=== PATIENT | female | born 1940 | race Caucasian/White ===

== ENCOUNTER 2017-07-18 06:52 | Outpatient (CLI) | payer MEDICARE | END 2017-07-18 06:53 | disposition home or self-care (01) | LOC: BICCT 06:52 | PROVIDERS: ATTEND Orthopaedic Surgery Sports Medicine | DX: R91.8 Other nonspecific abnormal finding of lung field (principal) | CPT/HCPCS: 71250 ==

== ENCOUNTER 2017-08-02 21:14 | Inpatient (IN) | payer MEDICARE ==
[~2017-08-02 21:14] MED LIST: ISOVUE-370 76%-LOCM 1 ML ONE
[2017-08-02 21:50] LABS: Bilirubin Small (Negative); Blood, Urine Negative (Negative); Clarity CLOUDY (Clear); Glucose, Urine (Dipstick) Negative (Negative); Leukocyte Moderate (Negative); Nitrite Negative (Negative); Protein, Urine (Dipstick) 100 mg/dL (Neg-Trace); Specific Gravity, Urine 1.023 (1.002-1.036)
[2017-08-02 21:52] LABS: Bacteria/HPF None Seen HPF (None Seen); WBC/HPF 21-50 HPF (0-3)
[2017-08-02 21:54] LABS: Pathc Cast-AUWi Flag 5.82 (0-2.49)
[2017-08-02 22:01] LABS: Hyaline Casts/LPF 0-3 HYALINE CAST LPF (0-3 Hyaline)
[2017-08-02 22:01] LABS: Hemoglobin 11.3 g/dL (12.0-16.0); Mean Corpuscular HGB CONC 32.9 g/dL (32.0-36.0); Mean Corpuscular Hemoglobin 36.2 pg (27.0-31.0); Mean Platelet Volume 6.1 fL (7.4-10.4); Platelet Count 341 thou/uL (130-400); RBC Distribution Width 11.7 % (11.5-14.5); Red Blood Cell (RBC) Count 3.13 mill/uL (4.20-5.40); White Blood Cell (WBC) Count 14.4 thou/uL (4.8-10.8)
[2017-08-02 22:02] LABS: Transitional Epithelial 0-3 HPF (0-3)
[2017-08-02 22:12] LABS: #Basophils 0.1 thou/uL (0.0-0.2); #Eosinphils 0.1 thou/uL (0.0-0.7); #Lymphocytes 1.9 thou/uL (1.20-3.40); #Monocytes 1.4 thou/uL (0.11-0.59); #Neutrophils 10.9 thou/uL (1.40-6.50); %Basophils 0.3 % (0.0-1.0); %Eosinophils 0.3 % (0.0-10.0); %Lymphocytes 13.2 % (21.0-51.0); %Monocytes 9.9 % (0.0-10.0); %Neutrophils 76.2 % (42.0-75.0); MDiff Complete? YES; Macrocytosis SLIGHT = 6-15 cells (100X) (0-5/hpf)
[2017-08-02 22:16] LABS: INR-International Normal Ratio 1.1; PTT 23.2 SEC (22.9-36.1); Prothrombin Time 14.6 SEC (12.0-14.7)
[2017-08-02 22:18] LABS: ALT (SGPT) 17 U/L (8-55); AST (SGOT) 23 U/L (5-34); Albumin 3.4 g/dL (3.4-4.8); Alkaline Phosphatase 69 U/L (40-150); Anion Gap 15 mmol/L (10-20); BUN (Urea Nitrogen) 34 mg/dL (9.8-20.1); Bilirubin, Total 0.5 mg/dL (0.2-1.2); Calc. Creatinine Clearance 0 mL/min (70-130); Calcium 9.6 mg/dL (7.8-10.44); Carbon Dioxide 21 mmol/L (23-31); Chloride 104 mmol/L (98-107); Estimated GFR-MDRD 48; Globulin 4.9 g/dL (2.4-3.5); Glucose 93 mg/dL (83-110); Lipase 15 U/L (8-78); Potassium 4.2 mmol/L (3.5-5.1); Protein, Total 8.3 g/dL (6.0-8.3); Sodium 136 mmol/L (136-145)
[2017-08-02] MEDS ORDERED: Pantoprazole 40 MG VIAL ONE (22:22)
[2017-08-02] MEDS ORDERED: Ondansetron HCl/PF 4 MG/2 ML Vial ONE (22:49)
--- NOTE | 2017-08-02 23:25 | CT ---
EXAM: ABDOMEN CT WITH CONTRAST PELVIC CT WITH CONTRAST 08/02/17 HISTORY: Nausea, vomiting, diarrhea. Decreased appetite. Rectal bleeding for four days. Abdominal pain. Dark s tools. COMPARISON: None. CORRELATION: Abdomen and pelvic CT with and without contrast 01/23/07. TECHNIQUE: An abdomen and pelvic CT are performed with IV contrast. Enteric contrast was not administered. Coron al reformatted images are submitted for interpretation. FINDINGS: ABDOMEN CT: There are areas of scarring atelectasis in the lung bases. Heart size is normal. No pericardial effus ion. The descending thoracic aorta and abdominal aorta have a normal caliber. No periaortic fat stran ding. Symmetric attenuation of the psoas muscles. Intra and extrahepatic portal vein is patent. Gallbladder is unremarkable. Note is made of a small hiatal hernia. The liver, spleen, pancreas, and adrenal glands have appropriate enhancement. Symmetric enhancement of the kidneys. There is scarring in the upper pole of the right kidney. Bilate rally, no obstructive uropathy. No gastrohepatic, retrocrural or periportal lymphadenopathy. No mesenteric mass, lymphadenopathy, or free air. Trace amount of fluid in the right pericolic gutter . Limited evaluation of the alimentary canal by the lack of oral contrast. Gastric mucosa, duodenum and the majority of the small bowel loops appear to be unremarkable. Ileocecal junction is normal. As st ated above, there is no evidence of small bowel obstruction. However, some of the small bowel loops i n the left hemiabdomen are slightly nonspecific and may have minimal mucosal prominence. Appendix is not appreciated. No inflammation at the cecal apex. The cecum, ascending colon, and proximal to mid t ransverse colon are unremarkable. There is a change in the overall mucosa starting in the mid transve rse colon involving the splenic flexure as well as the descending colon. The sigmoid colon has a norm al appearance. There are diverticula in the sigmoid colon, without evidence of diverticulitis. There is mild hyperemia and inflammatory change adjacent to the areas of abnormal mucosal prominence involv ing the colon as described above. No associated high grade colonic obstruction. PELVIC CT: There is free fluid in the pelvis. The uterus and adnexal structures are unremarkable. Urinary bladde r is unremarkable. No pelvic mass, lymphadenopathy or free air. Bilateral inguinal hernias containing mesenteric fat are identified. There is leftward curvature of the lumbar spine. IMPRESSION: 1. Abnormal mucosal appearance involving the mid transverse colon and descending colon. Distribu tion favors an infectious colitis. Inflammatory disease or a vascular/ischemic colitis are less favor ed. Correlate clinically. Colonoscopy can be performed as clinically warranted. 2. No evidence of bowel obstruction. There are some slightly irregular loops of small bowel in t he left hemiabdomen. Significance is uncertain. Better interrogation with oral contrast if warranted. 3. Free fluid in the pelvis. 4. Sigmoid colon diverticulosis without evidence of diverticulitis. POS: ELIZABETH
[2017-08-02] MEDS ORDERED: Meropenem 2 GM, Admixture Fee 1 EACH in Sodium Chloride 0.9% 100 ML IVPB SCH (23:45)
[2017-08-03] MEDS ORDERED: Acetaminophen 325 MG TAB PO PRN (01:14)
[2017-08-03] MEDS ORDERED: HYDROcodone/Acetaminophen 5/325 mg Tablet PO PRN (01:14)
[2017-08-03] MEDS ORDERED: Sodium Chloride 0.9% 1,000 ML IV SCH (01:15)
[2017-08-03 01:34] VITALS: BMI 25.7
[2017-08-03] MEDS: Sodium Chloride 0.9% 1,000 ML IV SCH ×3 (01:41→21:22)
--- NOTE | 2017-08-03 02:59 | HP ---
DATE OF ADMISSION: 08/02/2017 TIME OF SERVICE: 2345 hours. CHIEF COMPLAINT: Rectal bleeding. HISTORY OF PRESENT ILLNESS: Ms. Wayne is a 76-year-old female with history of mitral valve "leak" f ollowed by Dr. Perez, obstructive sleep apnea, hypothyroidism, GERD, who presents to the emergency dep artment for a several day history of abdominal pain, nausea, vomiting, and rectal bleeding. She describes rectal blood is initially bright red blood per rectum that seemed darkened over the t day or two. She saw PCP today and started her on Cipro. She was diagnosed with acute gastroenteri tis. She had nausea and vomiting the first 24 to 48 hours, but had resolved; but when she started vomiting again, she decided to come to the emergency department for evaluation. She did complain of sweats a nd chills during the first day that resolved. She denies any hematuria, no dysuria, no chest pain or shortness of breath. PAST MEDICAL HISTORY: 1. Mitral valve regurgitation, followed by Dr. Perez. 2. Obstructive sleep apnea, on CPAP at 10.5 cm. 3. Hypothyroidism. 4. GERD. 5. Breast cancer. 6. Osteoarthritis. 7. 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 PAST SURGICAL HISTORY: Includes; 1. Right salpingectomy. 2. Right oophorectomy. 3. Right total knee arthroplasty in 2008. 4. Bladder mesh repair in 2009. 5. Right breast lumpectomy and lymph nodectomy in 01/2016. 6. Appendectomy. 7. Hysterectomy. HOME MEDICATIONS: 1. Levothyroxine 100 mcg p.o. q.a.m. 2. Lisinopril 5 mg daily. 3. Toprol-XL 25 mg p.o. q.a.m. 4. Anastrozole 1 mg p.o. q.p.m. 5. Aspirin 81 mg daily. 6. Loratadine 10 mg daily. 7. Vitamin D3 of 2000 units q.a.m. 8. Tylenol as needed. She typically takes 1300 mg twice a day. ALLERGIES: NKDA. FAMILY HISTORY: Negative for clotting or bleeding disorder, no immune dysfunction. SOCIAL HISTORY: She used weekly social alcohol. No IV drugs or tobacco. [place] She had eaten recently at a restaurant last Monday, getting infection, but the food she ate other naty n cooked food she felt tasted normal. has eaten the exact same thing and has not had any ill nesses. REVIEW OF SYSTEMS: She has some pelvic pain with vaginal bleeding, being followed by her primary doc tor, but otherwise negative for all ten-point systems that were reviewed. PHYSICAL EXAMINATION: VITAL SIGNS: Temperature 98.6, pulse 84, blood pressure 121/67, respiratory rate 18, satting 97% on room air. GENERAL: She is awake. She is alert. She is oriented x3. She is frail, older white female, appear s to be in no acute distress. HEENT: Normocephalic and atraumatic. Pupils equal, round, and react to light bilaterally. Mucous m embranes are moist. There are no visible lesions, no thrush. NECK: Supple. There is no lymphadenopathy, JVD, or thyromegaly. She has normal Carotid upstroke wi thout bruits. LUNGS: Clear. No wheezes, no rales, no rhonchi. No prolonged expiratory phase. CARDIOVASCULAR: She has a normal S1 and S2. She has a faint holosystolic murmur, best heard at the apex, probably 2/6. She has no ejection murmurs and no diastolic murmurs. ABDOMEN: Soft. It is tender in the bilateral upper quadrants and the lateral side. She has no rebo und, rigidity, or guarding. There is no involuntary guarding. EXTREMITIES: No signs of clubbing, no edema. SKIN: Warm, moist, well perfused without rash or lesions. MUSCULOSKELETAL: Normal to inspection. There are no inflamed joints. No effusion. NEUROLOGIC: Cranial nerves II through XII are grossly intact, no focal deficits, 5/5 strength, jose raul l speech pattern. LABORATORY DATA: Sodium 136, potassium 4.2, chloride 104, bicarb 21, BUN 34, creatinine 1.10, and gl ucose 93. Liver function was completely normal. Lipase 15 and INR 1.1. CBC showed white count of 1 4.4 with normal differential, hemoglobin 11.3, hematocrit 34.5 and platelet count of 341,000. Urinal ysis showed no bacteria, negative nitrite, 4-6 squamous cells, 21-50 white cells and moderate leukoes terase. RADIOGRAPHIC STUDIES: A CT scan of the abdomen and pelvis shows transfuse and descending colitis, si gmoid diverticulosis without diverticulitis. ASSESSMENT AND PLAN: 1. Colitis: Infectious versus inflammatory. Ischemic possible. I will place the patient on levofl oxacin and Flagyl tonight, she has had multiple episodes of bright red blood per rectum. We will con tinue to treat and ask GI to evaluate. We will get stool cultures. 2. Lower gastrointestinal bleed: Bright red blood per rectum initially. She has had some darker st ools now. No hematemesis. We placed her on Protonix IV q.12 hours, and get serial H and H. Again, I will follow up on GI's recommendations. 3. History of mitral valve replacement: Stable and I will be careful with fluids and so we will ove rload her. 4. History of sleep apnea. We will order CPAP at her home settings. 5. Hypothyroidism, on levothyroxine, which will continue. 6. Gastroesophageal reflux disease as above. 7. History of breast cancer in remission after surgery. She is on her anastrozole, which will mikaela nue. 8. Cardiomyopathy: The patient was told by Dr. 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 I do not have a recent echo. She is not here for congestive heart failur e, so will defer.
[2017-08-03] MEDS: metroNIDAZOLE 500 MG in Premix Bag 1 BAG IVPB SCH ×4 (05:10→23:00)
[2017-08-03 06:12] LABS: #Eosinphils 0.1 thou/uL (0.0-0.7); #Lymphocytes 2.6 thou/uL (1.20-3.40); #Monocytes 1.4 thou/uL (0.11-0.59); #Neutrophils 9.2 thou/uL (1.40-6.50); %Basophils 0.3 % (0.0-1.0); %Eosinophils 0.4 % (0.0-10.0); %Lymphocytes 19.4 % (21.0-51.0); %Monocytes 10.5 % (0.0-10.0); %Neutrophils 69.4 % (42.0-75.0); Hemoglobin 11.6 g/dL (12.0-16.0); Mean Corpuscular HGB CONC 32.2 g/dL (32.0-36.0); Mean Corpuscular Hemoglobin 35.8 pg (27.0-31.0); Mean Platelet Volume 6.4 fL (7.4-10.4); Platelet Count 353 thou/uL (130-400); RBC Distribution Width 11.8 % (11.5-14.5); Red Blood Cell (RBC) Count 3.25 mill/uL (4.20-5.40); White Blood Cell (WBC) Count 13.2 thou/uL (4.8-10.8)
[2017-08-03 06:40] LABS: ALT (SGPT) 15 U/L (8-55); AST (SGOT) 20 U/L (5-34); Albumin 3.5 g/dL (3.4-4.8); Alkaline Phosphatase 71 U/L (40-150); Anion Gap 15 mmol/L (10-20); BUN (Urea Nitrogen) 25 mg/dL (9.8-20.1); Bilirubin, Total 0.5 mg/dL (0.2-1.2); Calc. Creatinine Clearance 59 mL/min (70-130); Calcium 9.4 mg/dL (7.8-10.44); Carbon Dioxide 18 mmol/L (23-31); Chloride 110 mmol/L (98-107); Estimated GFR-MDRD 64; Globulin 4.9 g/dL (2.4-3.5); Glucose 73 mg/dL (83-110); Magnesium 1.9 mg/dL (1.6-2.6); Potassium 3.9 mmol/L (3.5-5.1); Protein, Total 8.4 g/dL (6.0-8.3); Sodium 139 mmol/L (136-145)
--- NOTE | 2017-08-03 08:49 | PRG ---
DATE OF SERVICE: 08/03/2017 SUBJECTIVE: The patient is seen and examined at the bedside. She is doing significantly better. Sh e did not have more nausea, vomiting, and her diarrhea stopped last night. She still has abdominal s oreness. OBJECTIVE: VITAL SIGNS: Blood pressure is 97/62, O2 saturation 94, temperature is 98.6, pulse is 73, respirator y rate is 15. HEENT: Head; atraumatic, normocephalic. Eyes; PERRLA. Conjunctivae pinkish. Oral mucosa is dry. NECK: Supple, no lymphadenopathy. LUNGS: Clear. HEART: S1, S2 normal, no S3, no S4. No murmur. ABDOMEN: Soft, tender in the right and mid portion. No guarding, no masses. EXTREMITIES: No clubbing, cyanosis or edema. NEUROLOGIC: She is alert and oriented x4. There is no sensorimotor deficit. Cranial nerves are int act. LABORATORY DATA: Showed a white count of 13.2, hemoglobin 11.6, hematocrit 36.1, platelet count is 3 53,000. Sodium of 139, potassium 3.9, chloride 110, CO2 18, BUN 25, glucose 73, creatinine 0.86. Th e rest of chemistry within normal limits except for serum protein which is 8.4. Microbiology; FOBT p ositive for blood. IMPRESSION: 1. Acute gastroenteritis, most likely of infectious etiology. The patient responded nicely to antib iotics. She is on metronidazole and levofloxacin. GI consult is ordered. The patient's jb led Dr. Douglas who is the patient's GI and he will be involved in her care. 2. Lower gastrointestinal bleed, most likely secondary to infection, although ischemia was not ruled out yet. 3. History of mitral valve replacement, stable. 4. Hypothyroidism on replacement. 5. Gastroesophageal reflux disease. 6. History of breast cancer in remission after surgery on anastrozole. 7. Cardiomyopathy. 8. History of sleep apnea on CPAP at home. PLAN: Continue her IV antibiotics which is levofloxacin and metronidazole. Will slow down her IV fl uids to 100 mL per hour. Continue IV Protonix. Will reconcile her home medications and will have G I consultation with Dr. Douglas.
[2017-08-03] MEDS ORDERED: TURMERIC PO SCH (09:00)
[2017-08-03] MEDS ORDERED: TURMERIC ROOT EXTRACT PO SCH (09:00)
[2017-08-03] MEDS: Pantoprazole 40 MG VIAL IVP SCH ×2 (09:23→21:15)
[2017-08-03] MEDS: Lisinopril 5 MG TAB PO SCH (09:24)
[2017-08-03] MEDS: Metoprolol Tartrate 25 MG TAB PO SCH (09:24)
[2017-08-03] MEDS: Acetaminophen ER (8hr) 650 MG TAB PO SCH ×2 (09:25→21:14)
--- NOTE | 2017-08-03 11:57 | CON ---
DATE OF CONSULTATION: 08/03/2017 HISTORY OF PRESENT ILLNESS: The patient is a 76-year-old female who was in her normal stat e of health until 2 days prior to admission when she developed diffuse abdominal pain and cramping fo llowed by bloody diarrhea. She did have associated nausea and vomiting, but it was not coffee ground or bloody in nature. The patient had undergone a colonoscopy by Dr. Douglas in 2009 which was negati ve. The patient reports the diarrhea has slowed and the blood has become dark. She is having less a bdominal pain and she has had no vomiting. PAST MEDICAL HISTORY: Significant for breast cancer, gastroesophageal reflux disease manifested by a chronic cough, total knee replacement, mitral valve regurgitation, sleep apnea, and cardiomyopathy. PAST SURGICAL HISTORY: Ectopic , total knee replacement, bladder lift, a failed bladder lef t, lumpectomy, appendectomy, and hysterectomy. ALLERGIES: No known allergies. MEDICATIONS: Levothyroxine 100 mcg p.o. daily, lisinopril 5 mg p.o. daily, Toprol-XL 25 mg p.o. mary y, aspirin 81 mg p.o. daily, loratadine 10 mg p.o. every day, vitamin D3 2000 units daily q.a.m., Tyl enol p.r.n. SOCIAL HISTORY: She drinks 1 drink per week. Does not smoke. FAMILY HISTORY: Negative for GI or liver disease. REVIEW OF SYSTEMS: CONSTITUTIONAL: No fever or chills, no weight loss. EYES: No blurred vision or double vision. ENT: No sore throat or earaches. CARDIOVASCULAR: No chest pain or palpitations. PULMONARY: No shortness of breath, cough or wheezing. GASTROINTESTINAL: See above. : No hematuria or dysuria. MUSCULOSKELETAL: No joint pain or muscle weakness. SKIN: No rashes. NEUROLOGIC: No numbness or seizure activity. PHYSICAL EXAMINATION: VITAL SIGNS: Temperature 98.1, pulse 75, respiration rate 14, blood pressure 103/66. HEENT: Unremarkable. NECK: Supple. CHEST: Clear. CARDIOVASCULAR: Regular rate and rhythm. ABDOMEN: Soft. Diffusely tender without rebound or guarding. Bowel sounds are present. RECTAL: Deferred. EXTREMITIES: Normal. NEUROLOGIC: Nonfocal. LABORATORY: Shows a white blood cell count of 13.2, hemoglobin 11.6, hematocrit 36.1, MCV of 111, pl atelet count 353. Chemistries: Chloride 110, CO2 18, BUN 25, glucose 73, total protein 84, globulin 49. Urinalysis shows moderate leukocyte esterase, 21-[address] shows small hiatal hernia is noted. Abnormal mucosal appearance involving the mi d transverse and descending colon. No bowel obstruction, free fluid in the pelvis, sigmoid diverticu losis without diverticulitis. ASSESSMENT: 1. Ischemic colitis - the patient's clinical presentation along with a distribution of the colitis i s consistent with ischemic colitis. 2. Gastroesophageal reflux disease. 3. History of cardiomyopathy. 4. Elevated MCV. RECOMMENDATIONS: 1. Continue antibiotics. 2. Continue supportive care. 3. Check a serum folate and vitamin B12 levels. 4. PPI. 5. Clear liquids. 6. No colonoscopy at this time, will consider as outpatient.
[2017-08-03 15:32] LABS: Hemoglobin 10.2 g/dL (12.0-16.0)
[2017-08-04] MEDS ORDERED: Ondansetron HCl/PF 4 MG/2 ML Vial IVP SCH (01:00)
[2017-08-04] MEDS: Sodium Chloride 0.9% 1,000 ML IV SCH ×3 (04:18→13:35)
[2017-08-04] MEDS: metroNIDAZOLE 500 MG in Premix Bag 1 BAG IVPB SCH ×3 (05:19→18:47)
[2017-08-04] MEDS: Levothyroxine Sodium 100 MCG TAB PO SCH (05:19)
[2017-08-04 06:37] LABS: #Eosinphils 0.1 thou/uL (0.0-0.7); #Lymphocytes 1.9 thou/uL (1.20-3.40); #Monocytes 0.9 thou/uL (0.11-0.59); %Basophils 0.4 % (0.0-1.0); %Eosinophils 1.3 % (0.0-10.0); %Lymphocytes 23.4 % (21.0-51.0); %Monocytes 10.9 % (0.0-10.0); Hemoglobin 8.4 g/dL (12.0-16.0); Mean Corpuscular HGB CONC 32.7 g/dL (32.0-36.0); Mean Corpuscular Hemoglobin 36.3 pg (27.0-31.0); Mean Platelet Volume 6.5 fL (7.4-10.4); Platelet Count 288 thou/uL (130-400); RBC Distribution Width 11.7 % (11.5-14.5); Red Blood Cell (RBC) Count 2.32 mill/uL (4.20-5.40); White Blood Cell (WBC) Count 7.9 thou/uL (4.8-10.8)
[2017-08-04 07:30] LABS: Folate (Folic Acid) 16.2 ng/mL (7.0-31.4)
[2017-08-04] MEDS: Multivit, Therapeutic 1 TAB PO SCH ×2 (08:02→20:15)
[2017-08-04] MEDS: Pantoprazole 40 MG VIAL IVP SCH ×2 (08:02→20:16)
[2017-08-04] MEDS ORDERED: Magnesium 2 GM/NS 0.9% 50 ML 2 GM in Premix Bag 1 BAG IVPB SCH (09:30)
--- NOTE | 2017-08-04 11:25 | PRG ---
DATE OF SERVICE: 08/04/2017 SUBJECTIVE: The patient is seen and examined at bedside that she had a very bad night. She felt slime y good yesterday but she ate and all night she had some abdominal cramps and some diarrhea. She did not see much blood in the stool and her stools not watery, but slightly better consistency now. OBJECTIVE: VITAL SIGNS: Blood pressure is 96/59, temperature is 98.2, pulse is 59, respiratory rate is 14, and O2 saturation is 99% on room air. GENERAL: She looks somewhat pale and tired. HEENT: Pupils are responding to light properly. Sclerae nonicteric. Oral mucosa is somewhat dry. NECK: Supple. LUNGS: Clear. HEART: S1 and S2 normal. No S3, no S4. No any murmur. ABDOMEN: Soft, mildly tender all over. Bowel sounds are present. No organomegaly. EXTREMITIES: No clubbing, cyanosis, or edema. NEUROLOGIC: She is alert and oriented x4. There is no any sensory or motor deficits. Cranial nerve s intact. LABORATORY DATA: Showed white count of 7.9, hemoglobin 8.4, hematocrit 25.8, MCV 111, platelet count now is in the 88. Magnesium 1.5. Vitamin B12 is 712, folate 16.20. MICROBIOLOGY: Fecal occult blood test came back positive. IMPRESSION: 1. Colitis. The patient was seen by Dr. Kraus, who feels that this is more consistent with ischemic colitis. He recommends to continue her IV antibiotics, which is metronidazole and levofloxacin. 2. Lower gastrointestinal bleed, which could be infectious or ischemic. 3. History of mitral valve replacement, stable. 4. History of some form of cardiomyopathy. 5. Hypothyroidism on replacement. 6. Gastroesophageal reflux disease. 7. History of breast cancer in remission after surgery, on anastrozole. 8. Cardiomyopathy. 9. History of sleep apnea on continuous positive airway pressure at home. PLAN: Obtain last echo results from vp account director, Dr. Perez. We will slow down her IV fluids to 75 m L per hour. We will supplement her magnesium with 2 grams IV piggyback x1. We will keep her on mar r liquids for now and use p.r.n. antiemetic.
[2017-08-04] MEDS: Lisinopril 5 MG TAB PO SCH (13:35)
[2017-08-04] MEDS: Metoprolol Tartrate 25 MG TAB PO SCH (13:35)
[2017-08-04] MEDS: Acetaminophen ER (8hr) 650 MG TAB PO SCH ×2 (13:35→20:15)
[2017-08-05] MEDS: Promethazine HCl 25 MG/ML VIAL IM/IV PRN ×3 (00:13→18:29)
[2017-08-05] MEDS: metroNIDAZOLE 500 MG in Premix Bag 1 BAG IVPB SCH ×3 (00:15→11:38)
--- NOTE | 2017-08-05 00:15 | PRG ---
DATE OF SERVICE: 08/04/2017 SUBJECTIVE: The patient is feeling much better. She is having a lot less pain than yesterday. She is having some dark stools, but they seemed to be some black specks. No bright red blood is noted. She is tolerating an oral diet. OBJECTIVE: VITAL SIGNS: Temperature of 97.9, pulse 61, respiratory rate 14, blood pressure 144/81. CHEST: Clear. CARDIOVASCULAR: Regular rate and rhythm. ABDOMEN: Soft. Slightly tender, but much less tender than yesterday. No rebound or guarding. LABORATORY DATA: Shows a hemoglobin of 8.4, hematocrit 25.5. Vitamin B12 and folate are normal. ASSESSMENT: 1. Ischemic colitis - improving. 2. History of cardiomyopathy. 3. Anemia secondary to ischemic colitis. RECOMMENDATIONS: 1. Recheck CBC. 2. Advance diet. 3. Increase activity.
[2017-08-05] MEDS: Sodium Chloride 0.9% 1,000 ML IV SCH ×3 (00:16→18:17)
[2017-08-05] MEDS: Levothyroxine Sodium 100 MCG TAB PO SCH (05:39)
[2017-08-05 06:25] LABS: #Eosinphils 0.1 thou/uL (0.0-0.7); #Lymphocytes 1.3 thou/uL (1.20-3.40); #Monocytes 0.7 thou/uL (0.11-0.59); #Neutrophils 3.2 thou/uL (1.40-6.50); %Basophils 0.7 % (0.0-1.0); %Eosinophils 1.7 % (0.0-10.0); %Lymphocytes 25.1 % (21.0-51.0); %Monocytes 12.4 % (0.0-10.0); %Neutrophils 60.2 % (42.0-75.0); Mean Corpuscular HGB CONC 32.8 g/dL (32.0-36.0); Mean Platelet Volume 6.4 fL (7.4-10.4); Platelet Count 293 thou/uL (130-400); RBC Distribution Width 11.7 % (11.5-14.5); White Blood Cell (WBC) Count 5.3 thou/uL (4.8-10.8)
[2017-08-05] MEDS: Pantoprazole 40 MG VIAL IVP SCH (08:58)
[2017-08-05] MEDS: Acetaminophen ER (8hr) 650 MG TAB PO SCH ×2 (08:59→21:21)
[2017-08-05] MEDS: Metoprolol Tartrate 25 MG TAB PO SCH (09:00)
[2017-08-05] MEDS: Lisinopril 5 MG TAB PO SCH (09:01)
[2017-08-05] MEDS: Multivit, Therapeutic 1 TAB PO SCH ×2 (09:02→21:21)
[2017-08-05] MEDS ORDERED: Lidocaine 2% Viscous Solution 10 ML, Aluminum & Magnesium Hydroxide 30 ML SSW SCH ×2 (09:30)
[2017-08-05 10:05] LABS: Troponin I Less than 0.010 ng/mL (< 0.028)
--- NOTE | 2017-08-05 13:52 | PRG ---
DATE OF SERVICE: 08/05/2017 SUBJECTIVE: The patient is seen and examined at the bedside. She had some chest pressure this morni ng when she woke up, but she also had three small episodes of vomiting. The diarrhea is getting sign ificantly better. There was no any watery diarrhea. There was no blood in the stool anymore. She d oes not have any chest pressure any more. She thinks this was related to her vomiting, but she has a history of cardiac disease in the past. OBJECTIVE: VITAL SIGNS: Blood pressure is 148/78, pulse is 76, respiratory rate is 14, O2 saturation is 95, and temperature is 98.3. HEENT: Head is atraumatic, normocephalic. Eyes: PERRLA. Sclerae nonicteric. Conjunctivae pinkish . Oral mucosa is moist. NECK: Supple, no lymphadenopathy. LUNGS: Clear. HEART: S1 and S2 normal. No S3, no S4. ABDOMEN: Soft, nontender, nondistended. Bowel sounds are present. EXTREMITIES: No clubbing, cyanosis or edema. NEUROLOGIC: She is alert and oriented x4. There is no any sensory or motor deficit present. Crania l nerves are intact. LABORATORY DATA: Showed a white count of 5.3, hemoglobin 9.0, hematocrit 27.4, MCV 110, platelet cou nt is 293, CK-MB 2.0, magnesium 1.5. MICROBIOLOGY: No new testing. IPMRESSION: 1. Colitis, most likely ischemic per GI. We will continue IV antibiotics, metronidazole, and levofl oxacin with significant improvement in her condition. She does not have more pain or bloody diarrhea . 2. Lower gastrointestinal bleed, which is secondary to #1. 3. History of mitral valve replacement, stable. 4. History of some form of cardiomyopathy. Apparently, Dr. Perez, the carrot harvester stopped by last n ight and saw her. 5. Hypothyroidism on replacement. 6. Gastroesophageal reflux disease. 7. History of breast cancer in remission after surgery. The patient will be on anastrozole after steph love is discharged from the hospital. 8. Cardiomyopathy. Apparently had last LVEF was within normal limits based on the information we re ceived from Dr. Perez' office 9. History of sleep apnea, on CPAP at home. 10. Chest pressure. Unclear whether this is coronary artery disease, angina type of pain. Since steph love has a cardiac history, we will obtain the cardiac enzymes and we will do electrocardiogram to rule out any ischemic cause of her chest pressure. I will continue her IV fluids at 75 mL per hour and steph love received 2 grams of magnesium yesterday for magnesium level of 1.5. I am going to give her GI cock tail since she has 3 small episodes of vomiting this morning and if she tolerates this and her stomac h is better. I will start her on full liquid diet and advance as tolerated if GI is okay with this.
[2017-08-05] MEDS: Pantoprazole 80 MG in Sodium Chloride 0.9% 100 ML IVP SCH (18:15)
--- NOTE | 2017-08-05 18:36 | PRG ---
DATE OF SERVICE: 08/05/2017 SUBJECTIVE: The patient is feeling worse today. She had vomiting throughout the night and she repor ts she is having reflux type symptoms and chest discomfort. She is having some diarrhea, but it is n o longer bloody. OBJECTIVE: VITAL SIGNS: Temperature 98.3, pulse 61, respiratory rate 14, blood pressure 156/79. CHEST: Clear. CARDIOVASCULAR: Regular rate and rhythm. ABDOMEN: Soft, less tender, somewhat tender in epigastric area. No rebound or guarding is noted. LABORATORY DATA: Shows white blood cell count of 5.3, hemoglobin 9, hematocrit 27.4. ASSESSMENT: 1. Ischemic colitis. 2. Nausea, vomiting and epigastric pain - I suspect this is a flare up of the patient's reflux. RECOMMENDATIONS: 1. EGD and flex sig tomorrow. 2. Change the patient to continuous infusion PPI. 3. Continue Phenergan. 4. Discontinue metronidazole as this may be contributing some to her nausea and vomiting.
[2017-08-06] MEDS: Sodium Chloride 0.9% 1,000 ML IV SCH ×2 (00:34→15:30)
[2017-08-06] MEDS: Pantoprazole 80 MG in Sodium Chloride 0.9% 100 ML IVP SCH ×2 (04:30→17:39)
[2017-08-06] MEDS: Levothyroxine Sodium 100 MCG TAB PO SCH (06:19)
[2017-08-06] MEDS: Metoprolol Tartrate 25 MG TAB PO SCH (08:37)
[2017-08-06] MEDS: Lisinopril 5 MG TAB PO SCH (08:38)
[2017-08-06] MEDS: Acetaminophen ER (8hr) 650 MG TAB PO SCH ×2 (08:41→21:35)
[2017-08-06] MEDS: Multivit, Therapeutic 1 TAB PO SCH ×2 (08:41→21:35)
[2017-08-06] MEDS ORDERED: Promethazine HCl 25 MG/ML VIAL SLOW IVP PRN (13:07)
[2017-08-06] MEDS ORDERED: Ondansetron HCl/PF 4 MG/2 ML Vial IVP PRN (13:07)
[2017-08-06] MEDS ORDERED: Promethazine HCl 25 MG/ML VIAL IM PRN (13:07)
--- NOTE | 2017-08-06 15:20 | PDOC.PN ---
- Subjective Encounter Start Date: 08/06/17 Encounter Start Time: 09:20 Pt seen for followup re: diarrhea. Reports still has non-bloody diarrhea. Nausea better. No chest pain. - Objective Resuscitation Status: Resuscitation Status FULL:Full Resuscitation MAR Reviewed: Yes Vital Signs & Weight: Vital Signs (12 hours) Temp Pulse Resp BP BP Pulse Ox 08/06/17 14:00 98.1 F 58 L 20 155/78 H 97 08/06/17 09:00 98.3 F 64 20 150/81 H 94 L 08/06/17 08:38 62 150/81 H 08/06/17 08:00 98.3 F 64 20 94 L 08/06/17 04:00 98.5 F 59 L 16 144/77 H 92 L Weight Weight 145 lb 1.027 oz I&O: 08/05/17 08/06/17 08/07/17 06:59 06:59 06:59 Intake Total 1400 120 Balance 1400 120 Result Diagrams: 08/05/17 05:39 08/03/17 05:54 Phys Exam - Physical Examination Constitutional: NAD HEENT: moist MMs Neck: supple Respiratory: clear to auscultation bilateral Cardiovascular: RRR Gastrointestinal: soft, positive bowel sounds Neurological: moves all 4 limbs Psychiatric: normal affect Dx/Plan (1) Nausea Code(s): R11.0 - NAUSEA Status: Acute (2) Diarrhea Code(s): R19.7 - DIARRHEA, UNSPECIFIED Status: Acute (3) Cardiomyopathy Code(s): I42.9 - CARDIOMYOPATHY, UNSPECIFIED Status: Chronic (4) GERD (gastroesophageal reflux disease) Code(s): K21.9 - GASTRO-ESOPHAGEAL REFLUX DISEASE WITHOUT ESOPHAGITIS Status: Chronic (5) Hypothyroidism Code(s): E03.9 - HYPOTHYROIDISM, UNSPECIFIED Status: Chronic - Plan PT/OT, out of bed/ambulate, DVT proph w/SCDs * . Pt going for EGD + Flex-sig later today. Feels better. Follow up on scope reports. Check AM labs. Review of Systems - Review of Systems Cardiovascular: negative: chest pain, palpitations, orthopnea, paroxysmal nocturnal dyspnea, edema, light headedness Gastrointestinal: Nausea, Diarrhea. negative: Vomiting, Abdominal Pain, Constipation, Melena, Hematochezia - Medications/Allergies Allergies/Adverse Reactions: Allergies Allergy/AdvReac Type Severity Reaction Status Date / Time No Known Allergies Allergy Verified 02/22/17 10:29 Medications: Current Medications Acetaminophen (Tylenol) 650 mg PO Q4H PRN PRN Reason: Headache/Fever or Pain Last Admin: 08/04/17 08:19 Dose: 650 mg Acetaminophen (Tylenol Er (8hr Arthritis Pain)) 1,300 mg PO BID [facility] Last Admin: 08/06/17 08:41 Dose: Not Given Hydrocodone Bitart/Acetaminophen (Lawrence 5/325) 1 tab PO Q4H PRN PRN Reason: Moderate Pain (4-6) Cholecalciferol (Vitamin D3) 2,000 units PO DAILY [facility] Last Admin: 08/06/17 08:41 Dose: Not Given Fentanyl (Pacu-Sublimaze) 50 mcg SLOW IVP Q10MIN PRN PRN Reason: Moderate to Severe Pain (6-10) Stop: 08/06/17 16:07 Sodium Chloride (Normal Saline 0.9%) 1,000 mls @ 75 mls/hr IV .[id number] [facility] Last Admin: 08/06/17 00:34 Dose: Not Given Pantoprazole Sodium 80 mg/ (Sodium Chloride) 100 mls @ 10 mls/hr IVP INF [facility] Last Admin: 08/06/17 04:30 Dose: 100 mls Levothyroxine Sodium (Synthroid) 100 mcg PO 0600 [facility] Last Admin: 08/06/17 06:19 Dose: 100 mcg Lisinopril (Zestril) 5 mg PO QAM [facility] Last Admin: 08/06/17 08:38 Dose: 5 mg Metoprolol Tartrate (Lopressor) 25 mg PO DAILY [facility] Last Admin: 08/06/17 08:37 Dose: 25 mg Multivitamins (Theragran) 0.5 tab PO BID [facility] Last Admin: 08/06/17 08:41 Dose: Not Given Ondansetron HCl (Pacu-Zofran) 4 mg IVP ONE PRN PRN Reason: Nausea/Vomiting Stop: 08/06/17 16:07 Promethazine HCl (Phenergan) 12.5 mg IM/IV Q6H PRN PRN Reason: Nausea/Vomiting Last Admin: 08/05/17 18:29 Dose: 12.5 mg Promethazine HCl (Pacu-Phenergan) 6.25 mg SLOW IVP ONE PRN PRN Reason: Nausea/Vomiting Stop: 08/06/17 16:07 Promethazine HCl (Pacu-Phenergan) 6.25 mg IM ONE PRN PRN Reason: Nausea/Vomiting Stop: 08/06/17 16:07 Sodium Chloride (Flush - Normal Saline) 10 ml IVF PRN PRN PRN Reason: Saline Flush
[2017-08-06] MEDS ORDERED: Propofol 200 MG/20 ML VIAL ONE (16:34)
[2017-08-06] MEDS ORDERED: Lidocaine 1% PF 5 ML VIAL ONE (16:34)
--- NOTE | 2017-08-06 18:34 | OP ---
PREOPERATIVE DIAGNOSES: 1. Nausea, vomiting. 2. Epigastric pain. 3. Globus sensation. 4. Colitis by CT scan. ESOPHAGOGASTRODUODENOSCOPY PROCEDURE IN DETAIL: After informed consent was obtained, the patient was placed in the left lateral decubitus position. Anesthesia was administered per the Anesthesia Department. Forward-viewing end oscope was inserted into the esophagus under direct visualization with ease and passed to the second portion of the duodenum with ease. Second portion of duodenum and duodenal bulb were normal. The py lorus, antrum, body, fundus, and cardia were normal. Retroflexion in the stomach was normal. The es ophagus was normal throughout. ASSESSMENT: Normal esophagogastroduodenoscopy. RECOMMENDATIONS: 1. Continue PPI. 2. Switch to oral PPI when the patient is ready to go home. 3. Proceed with flexible sigmoidoscopy. COLONOSCOPY PROCEDURE IN DETAIL: After informed consent was obtained, the patient was placed in the left lateral decubitus position. Anesthesia was administered per the Anesthesia Department. Forward-viewing col onoscope was inserted in the rectum after perianal inspection and rectal exam were normal. It was pa ssed to the splenic flexure where some circumferential nodularity and ulceration were noted. Biopsie s were taken from this area. Approximately 20 cm of colon was involved, again mainly at the splenic flexure. This did not have the typical appearance of ischemic colitis, but considering its location, most likely is ischemic colitis. The colon was fairly clean as the scope was passed to the cecum. The cecum, ileocecal valve, and appendiceal orifice were normal. The ascending, transverse, descendi ng, sigmoid, and rectum were otherwise normal except for left-sided diverticula. ASSESSMENT: 1. 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 2. Left-sided diverticulosis coli. RECOMMENDATIONS: 1. Await histopathology. 2. Advance diet. 3. Home soon.
[2017-08-07] MEDS: Sodium Chloride 0.9% 1,000 ML IV SCH (04:20)
[2017-08-07 05:31] LABS: #Eosinphils 0.1 thou/uL (0.0-0.7); #Lymphocytes 1.7 thou/uL (1.20-3.40); #Monocytes 0.9 thou/uL (0.11-0.59); #Neutrophils 3.6 thou/uL (1.40-6.50); %Basophils 0.5 % (0.0-1.0); %Eosinophils 1.9 % (0.0-10.0); %Lymphocytes 26.8 % (21.0-51.0); %Monocytes 14.4 % (0.0-10.0); %Neutrophils 56.5 % (42.0-75.0); Hemoglobin 9.1 g/dL (12.0-16.0); Mean Corpuscular HGB CONC 31.7 g/dL (32.0-36.0); Mean Corpuscular Hemoglobin 34.9 pg (27.0-31.0); Mean Platelet Volume 6.3 fL (7.4-10.4); Platelet Count 307 thou/uL (130-400); RBC Distribution Width 11.8 % (11.5-14.5); White Blood Cell (WBC) Count 6.3 thou/uL (4.8-10.8)
[2017-08-07] MEDS: Levothyroxine Sodium 100 MCG TAB PO SCH (05:31)
[2017-08-07] MEDS: Pantoprazole 80 MG in Sodium Chloride 0.9% 100 ML IVP SCH (05:32)
[2017-08-07 06:07] LABS: Anion Gap 18 mmol/L (10-20); BUN (Urea Nitrogen) 12 mg/dL (9.8-20.1); Calc. Creatinine Clearance 72 mL/min (70-130); Calcium 8.4 mg/dL (7.8-10.44); Carbon Dioxide 17 mmol/L (23-31); Chloride 108 mmol/L (98-107); Estimated GFR-MDRD 83; Magnesium 1.5 mg/dL (1.6-2.6); Potassium 3.2 mmol/L (3.5-5.1); Sodium 140 mmol/L (136-145)
[2017-08-07 06:15] LABS: Glucose 54 mg/dL (83-110)
[2017-08-07] MEDS ORDERED: Dextrose 5 %-0.45 % NaCl 1,000 ML IV SCH (07:15)
[2017-08-07 07:48] VITALS: BP 115/68; TEMP 98.3
[2017-08-07] MEDS: Metoprolol Tartrate 25 MG TAB PO SCH (08:58)
[2017-08-07] MEDS: Lisinopril 5 MG TAB PO SCH (08:58)
[2017-08-07] MEDS: Acetaminophen ER (8hr) 650 MG TAB PO SCH (08:59)
[2017-08-07] MEDS: Multivit, Therapeutic 1 TAB PO SCH (08:59)
--- NOTE | 2017-08-07 11:21 | DIS ---
DATE OF ADMISSION: 08/02/2017 DATE OF DISCHARGE: 08/07/2017 DISCHARGE DISPOSITION: Home. PRIMARY CARE PROVIDER: Ebony Damon M.D. FINAL DIAGNOSES: Ischemic colitis, rectal bleeding, hypertension, hypothyroidism, and gastroesophage al reflux disease. DISCHARGE MEDICATIONS: Aspirin 81 mg a day, levothyroxine 1000 mcg a day, vitamin D3 2000 units a da y, metoprolol 25 mg a day, lisinopril 5 mg a day, and Protonix 40 mg twice a day. ALLERGIES: No known drug allergies. CODE STATUS: FULL. PENDING AT THE TIME OF DISCHARGE: Nothing. HOSPITAL COURSE: Patient admitted with rectal bleeding, nausea, vomiting. Admitting diagnosis was i schemic colitis versus infectious. The patient was placed on antibiotics. Dr. Pollo Kraus was consul monse. On 08/06/2017, the patient underwent esophagogastroduodenoscopy which was normal. Colonoscopy revealed splenic flexure colitis. Biopsy is currently pending. The patient has had no more rectal b leeding. She is stable and feels good to go home. Dr. Kraus has said that she could go home. PENDING AT THE TIME OF DISCHARGE: Colon biopsy at the splenic flexure. Follow up with Dr. Nuñez in 7 days. The patient to call Dr. Douglas, her primary plow holder for followup. Prescription for Protonix 40 mg twice a day written.
--- NOTE | 2017-08-10 19:42 | EKG ---
Test Reason : Blood Pressure : / mmHG Vent. Rate : 056 BPM Atrial Rate : 056 BPM P-R Int : 158 ms QRS Dur : 086 ms QT Int : 458 ms P-R-T Axes : 000 -17 013 degrees QTc Int : 441 ms Sinus bradycardia Otherwise normal ECG When compared with ECG of 01-FEB-2017 07:56, No significant change was found Confirmed by KEYSHA STAUFFER (2) on 08/10/2017 7:41:51 PM Referred By: MAYDA Confirmed By:KEYSHA STAUFFER
== END 2017-08-07 12:08 | disposition home or self-care (01) | DRG 392 ==
LOC: ERS 21:14 → SJJU 08-03 00:10
PROVIDERS: ADMIT Internal Medicine Infectious Disease; ATTEND Internal Medicine Infectious Disease
PROC: 0DJ08ZZ Inspection of Upper Intestinal Tract, Via Natural or Artificial Opening Endoscopic (ICD-10-PCS; principal; 2017-08-06)
PROC: 0DBL8ZX Excision of Transverse Colon, Via Natural or Artificial Opening Endoscopic, Diagnostic (ICD-10-PCS; 2017-08-06)
DX: K52.9 Noninfective gastroenteritis and colitis, unspecified (principal); I42.9 Cardiomyopathy, unspecified; D64.9 Anemia, unspecified; K62.5 Hemorrhage of anus and rectum; I34.0 Nonrheumatic mitral (valve) insufficiency; E03.9 Hypothyroidism, unspecified; G47.33 Obstructive sleep apnea (adult) (pediatric); K21.9 Gastro-esophageal reflux disease without esophagitis; Z85.3 Personal history of malignant neoplasm of breast; M19.90 Unspecified osteoarthritis, unspecified site; Z79.82 Long term (current) use of aspirin; Z95.2 Presence of prosthetic heart valve; K57.90 Diverticulosis of intestine, part unspecified, without perforation or abscess without bleeding; Z96.659 Presence of unspecified artificial knee joint; I10 Essential (primary) hypertension
CPT/HCPCS: 36415; 36416; 74177; 80048; 80053; 81003; 81015; 82274; 82553; 82607; 82746; 83605; 83690; 83735; 84484; 85025; 85610; 85730; 86850; 86900; 86901; 88305; 93005; 93010; 96361; 96374; 96375; C9113; J1956; J2001; J2185; J2405; J2550; J2704; J3475; J7050

== ENCOUNTER 2017-09-13 08:21 | Outpatient (CLI) | payer MEDICARE | END 2017-09-13 08:22 | disposition home or self-care (01) | LOC: BICMAMMO 08:21 | PROVIDERS: ATTEND Surgery | DX: Z08 Encounter for follow-up examination after completed treatment for malignant neoplasm (principal); Z85.3 Personal history of malignant neoplasm of breast | CPT/HCPCS: 77065; G0279 ==

== ENCOUNTER 2018-03-14 08:26 | Outpatient (CLI) | payer MEDICARE | END 2018-03-14 08:27 | disposition home or self-care (01) | LOC: BICMAMMO 08:26 | PROVIDERS: ATTEND Family Medicine | DX: Z08 Encounter for follow-up examination after completed treatment for malignant neoplasm (principal); Z85.3 Personal history of malignant neoplasm of breast | CPT/HCPCS: 77066; G0279 ==

== ENCOUNTER 2018-08-31 10:40 | Outpatient (CLI) | payer MEDICARE ==
--- NOTE | 2018-08-31 14:02 | CT ---
CT ABDOMEN AND PELVIS WITH IV CONTRAST: DATE: 08/31/2018. HISTORY: Abdominal or pelvic swelling or mass. The patient states having pain and swelling in the left pelvic region which has gotten worse. History of breast cancer. COMPARISON: 08/02/2017. FINDINGS: There is stable parenchymal density within the medial and lower aspect of the right middle lobe which may represent a chronic area of atelectasis. Lung bases otherwise appear clear. The liver, spleen, pancreas, bilateral adrenal glands, kidneys, incompletely distended urinary bladde r as well as opacified small bowel demonstrate a normal CT appearance. There is a left inguinal hernia which contains loops of small bowel without evidence of a bowel obstr uction. A fat-containing right inguinal canal is also present. There is colonic diverticulosis. The appendix is not visualized, but there are no secondary signs to suggest appendicitis. Vascular calcifications are seen in a tortuous abdominal aorta and involving the iliac arteries. There is severe left convex rotoscoliosis of the thoracolumbar spine with degenerative changes in the spine. No free fluid, fluid collection, or lymphadenopathy is seen in the abdomen or pelvis. There is a hypodense collection seen centrally in the lower perineal region in the midline in the exp ected location of the urethra measuring 2.3 cm x 1.5 cm. This was not present on the prior study. T his may represent a urethral diverticulum. There is no free fluid, fluid collection, or lymphadenopathy seen in the abdomen or pelvis. IMPRESSION: 1. Left inguinal hernia containing loops of small bowel, but there is no evidence of a bowel obstruc tion. 2. Hypodense collection within the midline in the lower perineal region inferior to the level of the pubic symphysis which is in the expected location of the urethra and could potentially represent a u rethral diverticulum. This was not present on prior exam. MRI pelvis may be helpful for further del ineation. 3. Colonic diverticulosis. 4. Severe convex rotoscoliosis of the thoracolumbar spine. POS: [facility]
[2018-08-31] MEDS ORDERED: ISOVUE-370 76%-LOCM 1 ML ONE (14:49)
== END 2018-08-31 10:41 | disposition home or self-care (01) ==
LOC: BICCT 10:40
PROVIDERS: ATTEND Family Medicine
DX: R19.04 Left lower quadrant abdominal swelling, mass and lump (principal); K40.90 Unilateral inguinal hernia, without obstruction or gangrene, not specified as recurrent; K57.30 Diverticulosis of large intestine without perforation or abscess without bleeding; M41.9 Scoliosis, unspecified
CPT/HCPCS: 74177; 82565; Q9966

== ENCOUNTER 2018-09-26 11:48 | Outpatient (CLI) | payer MEDICARE ==
--- NOTE | 2018-09-26 13:46 | RAD ---
OSSEOUS SURVEY: 09/26/2018 HISTORY: Staging of multiple myeloma. TECHNIQUE: AP and lateral views of the spine, lateral view of the skull, AP views of the upper and lower extremi ties, and AP view of the pelvis are obtained. FINDINGS: Multilevel degenerative changes are seen throughout the cervical, thoracic, and lumbar spine. There is severe left convex rotoscoliosis of the thoracolumbar spine, centered at the L2-L3 level. There i s compensatory right convex curvature of the thoracic spine. There is trace anterolisthesis of C3 on C4, likely related to the facet degenerative changes at this level. Prominent degenerative changes are seen involving the left knee, with a right total knee prosthesis p resent. There is suggestion of a slight mottled appearance involving the proximal left tibia. 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 Osteopenia is present. Increased density foci overly the pelvis, likely related to residual contrast within colonic divertic niranjan. IMPRESSION: 1. Slight mottled appearance involving the proximal left tibial metadiaphysis, which could potential ly be related to the patient's history of multiple myeloma. No additional discrete lytic or scleroti c osseous lesions are seen. 2. Multilevel degenerative changes in the spine, with S-shaped scoliotic curvature of the thoracolum bar spine. 3. Trace anterolisthesis of C4 on C5. 4. Osteopenia. POS: [facility]
== END 2018-09-26 11:49 | disposition home or self-care (01) ==
LOC: BICRAD 11:48
PROVIDERS: ATTEND Internal Medicine Hematology & Oncology
DX: C90.00 Multiple myeloma not having achieved remission (principal); C50.511 Malignant neoplasm of lower-outer quadrant of right female breast; M47.819 Spondylosis without myelopathy or radiculopathy, site unspecified; M85.80 Other specified disorders of bone density and structure, unspecified site; M41.9 Scoliosis, unspecified
CPT/HCPCS: 77075

== ENCOUNTER 2018-09-28 00:40 | Outpatient (CLI) | payer MEDICARE ==
[2018-09-28 13:59] LABS: #Eosinphils 0.1 thou/uL (0.0-0.7); #Lymphocytes 2.3 thou/uL (1.20-3.40); #Monocytes 0.7 thou/uL (0.11-0.59); #Neutrophils 4.3 thou/uL (1.40-6.50); %Basophils 0.4 % (0.0-1.0); %Eosinophils 1.6 % (0.0-10.0); %Lymphocytes 31.1 % (21.0-51.0); %Monocytes 9.8 % (0.0-10.0); Hemoglobin 9.7 g/dL (12.0-16.0); Mean Corpuscular HGB CONC 31.4 g/dL (32.0-36.0); Mean Corpuscular Hemoglobin 34.6 pg (27.0-31.0); Platelet Count 367 thou/uL (130-400); RBC Distribution Width 14.1 % (11.5-14.5); White Blood Cell (WBC) Count 7.5 thou/uL (4.8-10.8)
[2018-09-28 14:25] LABS: Anion Gap 10 mmol/L (10-20); BUN (Urea Nitrogen) 25 mg/dL (9.8-20.1); Calc. Creatinine Clearance 0 mL/min (70-130); Calcium 9.5 mg/dL (7.8-10.44); Carbon Dioxide 26 mmol/L (23-31); Chloride 106 mmol/L (98-107); Estimated GFR-MDRD 64; Glucose 116 mg/dL (83-110); Potassium 4.5 mmol/L (3.5-5.1); Sodium 137 mmol/L (136-145)
--- NOTE | 2018-09-28 15:48 | RAD ---
PA AND LATERAL CHEST: Date: 09/28/18 HISTORY: Preop. FINDINGS: Heart size is within normal limits. There are atherosclerotic changes of the aorta. Lungs show some c hronic appearing change. There is marked scoliotic change of the spine. IMPRESSION: Chronic lung change and scoliosis. No active intrathoracic disease. POS: [facility]
== END 2018-09-28 00:41 | disposition home or self-care (01) ==
LOC: LABBT 00:40
PROVIDERS: ATTEND Specialist
DX: Z01.818 Encounter for other preprocedural examination (principal); K40.20 Bilateral inguinal hernia, without obstruction or gangrene, not specified as recurrent; M41.9 Scoliosis, unspecified; J98.4 Other disorders of lung
CPT/HCPCS: 71046; 80048; 85025

== ENCOUNTER 2018-10-02 06:05 | Day surgery (SDC) | payer MEDICARE ==
[2018-09-28 12:51] VITALS: BMI 24.3
[2018-10-02] MEDS ORDERED: Ketorolac Tromethamine 30 MG/ML VIAL ONE (06:22)
[2018-10-02] MEDS ORDERED: Bupivacaine/Epinephrine 0.25% 30 ML VIAL ONE (06:56)
[2018-10-02] MEDS ORDERED: Fentanyl 100 MCG/2 ML VIAL ONE (06:59)
[2018-10-02] MEDS ORDERED: Dexamethasone 20 MG/5 ML VIAL ONE (12:58)
[2018-10-02] MEDS ORDERED: Succinylcholine Chloride 20 MG/ML 10 ml SYRINGE FS ONE (12:58)
[2018-10-02] MEDS ORDERED: Rocuronium Bromide 10 MG/ML (10ML VIAL) ONE (12:58)
[2018-10-02] MEDS ORDERED: Lidocaine 1% PF 5 ML VIAL ONE (12:58)
[2018-10-02] MEDS ORDERED: PROPOFOL 200 MG/20 ML VIAL ONE (12:58)
[2018-10-02] MEDS ORDERED: Ondansetron PF 4 MG/2 ML Vial ONE (12:58)
[2018-10-02] MEDS ORDERED: Glycopyrrolate 0.2 MG/ML 5 ML SYRINGE ONE (12:58)
[2018-10-02] MEDS ORDERED: PHENYLEPHRINE-NS 100 MCG/ML 10 ML SYRINGE ONE (12:58)
--- NOTE | 2018-10-03 10:02 | OP ---
DATE OF PROCEDURE: 10/02/2018 PREOPERATIVE DIAGNOSIS: Bilateral inguinal hernia. POSTOPERATIVE DIAGNOSIS: Bilateral inguinal hernia, indirect. OPERATION PERFORMED: Robotic repair of bilateral inguinal hernias using 3DMax mesh (medium on the right and large on the left). ANESTHESIA: General endotracheal. INDICATIONS: The patient is a 78-year-old white female. She presented with obvious visible bilateral inguinal hernias. Recent CT scan showed that there were loops of bowel present within one of them. I recommended a robotic bilateral inguinal hernia repair. I was somewhat concerned if she had a midline lower abdominal incision as well as a history of prior laparoscopic gynecologic surgery. DESCRIPTION OF OPERATION: Informed consent was obtained. The patient was taken to the operating room, where general endotracheal anesthesia was obtained. The patient was in supine position. Ashraf catheter was placed, abdomen was prepped with ChloraPrep, draped in sterile fashion. Local anesthetic was infiltrated and an 11 mm supraumbilical incision was created. A Veress needle was passed through this incision into the peritoneal cavity. A pneumoperitoneum was established. She has carbon dioxide up to pressure of 15 mmHg. An 11 mm trocar port was passed through the same incision. Laparoscopic camera was passed through this port. Under direct vision, two additional 8-mm robotic ports were placed on either side of midline at the supraumbilical level. Attention was turned inferiorly. The patient had easily visible, fairly large bilateral indirect inguinal hernias. There was surprisingly scant adhesions to the anterior abdominal wall and there did not appear to be significant interruption of the preperitoneal space and I decided to proceed robotically. The robot was docked to the ports and the camera, and operation was continued from the robotic console. Attention was turned first to the right side. A transverse incision was created several centimeters above the hernia defect. The median umbilical ligament had been obliterated by prior surgery, but dissection was carried to approximately that level. Preperitoneal dissection was carried inferiorly. The pubic tubercle was identified medially. The iliopubic tract was dissected laterally to create space for the mesh. The hernia sac was easily dissected out of the hernia defect. The round ligament was divided. The iliac vessels were identified and carefully preserved. The peritoneum was widely dissected inferiorly to give adequate room for mesh. As she was a small framed woman, I decided to use a medium-sized patch on the right. This was obtained and placed in the preperitoneal space. There was more than enough room for the medium patch, and for this reason, I decided to use the large patch on the left side. The patch was secured to the pubic tubercle and to the anterior abdominal wall with single interrupted sutures of 3-0 Vicryl. The mesh was ideally positioned to cover the defect. The peritoneum was closed with a running suture of 3-0 Stratafix. Attention was then turned to the left side. A mirror-image operation was performed with identical findings. A large-sized mesh patch was obtained for the left and positioned uneventfully and secured with the same 2 Vicryl sutures. The peritoneal defect was again closed uneventfully. The fascial defect at the 11 mm port site was closed with 0 Vicryl suture using a GraNee needle. All ports and instruments were removed under direct vision. Pneumoperitoneum was carefully evacuated. 0.25% Marcaine with epinephrine was infiltrated at each port site. Skin edges were approximated with 4-0 Monocryl subcuticular suture. Dermabond was placed externally. There were no complications. The patient tolerated the procedure well and was taken to recovery room in stable condition. Job ID: [id number]
== END 2018-10-02 13:14 | disposition home or self-care (01) ==
LOC: SDC 06:05
PROVIDERS: ATTEND Specialist
PROC: 0YUA4JZ Supplement Bilateral Inguinal Region with Synthetic Substitute, Percutaneous Endoscopic Approach (ICD-10-PCS; principal; 2018-10-02)
DX: K40.20 Bilateral inguinal hernia, without obstruction or gangrene, not specified as recurrent (principal); E03.9 Hypothyroidism, unspecified; M85.80 Other specified disorders of bone density and structure, unspecified site; Z79.82 Long term (current) use of aspirin; Z79.811 Long term (current) use of aromatase inhibitors; Z79.899 Other long term (current) drug therapy; Z98.890 Other specified postprocedural states
CPT/HCPCS: C1781; J0131; J1100; J1885; J2001; J2405; J2704; J3010

== ENCOUNTER 2018-12-25 12:08 | Outpatient (CLI) | payer MEDICARE ==
[~2018-12-25 12:08] MED LIST changes: +Gadobenate Dimeglumine 529 MG/1 ML (20ML VIAL) ONE; -ISOVUE-370 76%-LOCM 1 ML ONE
--- NOTE | 2018-12-25 15:20 | MRI ---
MRI of the lumbar spine with and without contrast: 12/25/2018 COMPARISON: None HISTORY: Low back pain, history of breast cancer and multiple myeloma TECHNIQUE: Multiplanar multisequence MR imaging of the lumbar spine provided with and without contras t FINDINGS: There is severe lumbar spine levoscoliosis, limiting detailed assessment. STIR imaging demonstrates fluid within the region of the facet joint on the left at T10-11. On the basis of 5 lumbar type vertebral bodies, the conus medullaris terminates at the L1-2 level. T12-L1: There is disc space narrowing and disc desiccation with mild disc bulge causing no central ca nal stenosis. There is mild bilateral facet hypertrophy with no significant central canal or neural foraminal stenosis. L1-2: There is disc space narrowing and disc desiccation. There is mild left and moderate right facet hypertrophy with associated moderate right neural foraminal stenosis. L2-3: There is disc space narrowing and disc desiccation. No significant central canal stenosis. Mild bilateral facet hypertrophy with mild bilateral neural foraminal stenosis. L3-4: There is disc space narrowing and disc desiccation with a small disc osteophyte complex. There is mild central canal stenosis. There is bilateral facet hypertrophy with moderate right and mild left neural foraminal stenosis. L4-5: Bilateral facet hypertrophy, left greater than right. Moderate left neural foraminal stenosis. Mild central canal stenosis. No significant right neural foraminal stenosis. L5-S1: Mild anterolisthesis noted measuring 6 mm. Bilateral facet hypertrophy noted. Mild left neural foraminal stenosis. The imaged retroperitoneal structures demonstrate no acute findings. The postcontrast imaging demonstrates no abnormal enhancement involving the nerve roots of the cauda equina or the osseous structures of the lumbar spine. There is enhancement centered at the facet joint on the left at T10-11, likely on the basis of inflammatory degenerative change. There are scattered hemangiomata noted within the lumbar spine with no discrete worrisome area of abn ormal marrow signal intensity. IMPRESSION: Prominent lumbar spine scoliosis with associated degenerative change as detailed above. Transcribed Date/Time: 12/25/2018 3:52 PM
--- NOTE | 2018-12-25 17:30 | MRI ---
MRI THORACIC SPINE WITH AND WITHOUT CONTRAST: 12/25/18 HISTORY: Mid back pain. COMPARISON: None. FINDINGS: Appropriate T1 and T2 marrow signal intensity of the thoracic vertebrae. Thoracic spine vertebral bod y height is maintained. There is no fracture. Intrinsic T1 and T2 hyperintensity involving the right aspect of the T6 vertebral body, compatible with hemangioma. No significant STIR hyperintensity to lbum ggest vertebral body edema or ligamentous injury. There is no evidence of abnormal enhancement with regards to the vertebral bodies. There is no abnorm al enhancement with regards to the thoracic cord. No cord expansion or cord T2 hyperintensity. The visualized mediastinal structures, lung parenchyma and solid organs are grossly unremarkable. Conus medullaris terminates at the mid L1 level. There is leftward curvature of the lumbar spine. T1-T2: No significant central canal stenosis. Foramina are patent. T2-T3: No significant central canal stenosis. Foramina are patent. T3-T4: No significant central canal stenosis. Foramina are patent. T4-T5: No significant central canal stenosis. Foramina are patent. T5-T6: Minimal central disc bulge. No significant central canal stenosis. Foramina are patent. T6-T7: No significant central canal stenosis. Foramina are patent. T7-T8: No significant central canal stenosis. Neural foramina are patent. T8-T9: No significant central canal stenosis. Neural foramina appear to be patent. T9-T10: No significant central canal stenosis or foraminal narrowing. T10-T11: No significant posterior disc abnormality. Mild stenosis of thecal sac predominantly due to facet hypertrophy. There is a small amount of fluid in the left facet joint. There is evidence of ass ociated enhancement suggesting facet arthropathy. Right neural foramen is patent. Minimal left forami nal narrowing. T11-T12: Minimal ligamentum flavum thickening and facet hypertrophy. No significant central canal fernando nosis. T12-L1: Mild posterior element hypertrophy. No significant central canal stenosis. No significant fo raminal narrowing at T11-T12 bilaterally. IMPRESSION: 1. No pathologically enhancement of the cord. 2. No evidence of high grade central canal stenosis or definite high grade foraminal narrowing. 3. Levoscoliosis of the lumbar spine. 4. Left sided facet arthropathy at T10-T11. There is evidence of fluid and enhancement at the yaniv int space. POS: [facility]
== END 2018-12-25 12:09 | disposition home or self-care (01) ==
LOC: BICMRI 12:08
PROVIDERS: ATTEND Neurological Surgery
DX: M54.6 Pain in thoracic spine (principal); M54.5 Low back pain; M41.9 Scoliosis, unspecified; M47.814 Spondylosis without myelopathy or radiculopathy, thoracic region; M47.816 Spondylosis without myelopathy or radiculopathy, lumbar region
CPT/HCPCS: 72157; 72158; A9577

== ENCOUNTER 2019-02-07 10:50 | Outpatient (CLI) | payer MEDICARE ==
--- NOTE | 2019-02-07 13:49 | RAD ---
CERVICAL SPINE THREE VIEWS: HISTORY: Headache. Spondylosis. TECHNIQUE: Lateral views obtained with neutral, flexion, and extension. FINDINGS: Moderate degenerative changes of the mid and lower cervical spine. Loss of disk space is seen at C5- C6, C6-C7, and C7-T1. Anterior osteophytes at these levels with posterior spondylosis. There is sli ght anterolisthesis at C4-C5. This does not appear to significantly change with flexion or extension . Spondylosis at C5, C6, and C7 encroaches into the spinal canal. Facet hypertrophy is noted. IMPRESSION: Moderate degenerative changes, as described. POS: [facility]
--- NOTE | 2019-02-07 14:24 | MRI ---
MRI CERVICAL SPINE WITHOUT CONTRAST: Multiplanar, multisequential imaging cervical spine obtained. INDICATION: Cervical spondylosis. FINDINGS: There are moderate degenerative changes of the mid cervical spine. Loss of disk space with degenerat saman spurring and spondylosis is prominent at C5-6, C6-7, and C7-T1. No significant spondylosis or disk bulge seen at C2-3 or C3-4. At C4-5, mild disk bulge and spondylosis of the anterior subarachnoid space is well preserved. At C5-6, slight anterolisthesis is noted. There is posterior disk bulge and spondylosis which abuts the anterior cord. No significant foraminal stenosis apparent, although there is left facet and unci jama hypertrophy narrowing the left foramina. At C6-7, posterior disk bulge and spondylosis abuts the anterior cord. No significant foraminal sten osis apparent. At C7-T1, there is mild anterolisthesis measured at 2-3 mm. Broad-based disk bulge and spondylosis f latten the thecal sac and efface the anterior subarachnoid space. No significant cord impingement. No significant foraminal stenosis apparent. Cervical cord signal appears normally maintained. IMPRESSION: Degenerative changes with posterior spondylosis at C5-6, C6-7, and C7-T1 as described. POS: [facility]
== END 2019-02-07 10:51 | disposition home or self-care (01) ==
LOC: BICMRI 10:50
PROVIDERS: ATTEND Nurse Practitioner Family
DX: M47.812 Spondylosis without myelopathy or radiculopathy, cervical region (principal); M47.813 Spondylosis without myelopathy or radiculopathy, cervicothoracic region
CPT/HCPCS: 36415; 72050; 72141; 80053; 80061; 84439; 84443; 85025

== ENCOUNTER 2019-03-20 10:17 | Outpatient (CLI) | payer MEDICARE ==
--- NOTE | 2019-03-20 10:57 | MMO ---
Bilateral MAMMO Bilat Diag [facility]. CLINICAL HISTORY: Patient is 78 years old and is seen for diagnostic exam. The patient has no family history of breast cancer. 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 The patient has a history of right Lumpectomy in 2017 - malignant and right Ultrasound Guided Core Biopsy - malignant. VIEWS: The views performed were: bilateral craniocaudal with tomosynthesis; bilateral mediolateral oblique with tomosynthesis; and bilateral mediolateral with tomosynthesis. FILMS COMPARED: The present examination has been compared to prior imaging studies performed at [facility] on 01/19/2017, 01/20/2017, 09/13/2017 and 03/14/2018. MAMMOGRAM FINDINGS: There are scattered fibroglandular densities. Finding 1: There are benign appearing calcifications seen in both breasts. Finding 2: There is a stable post-surgical scar seen in the right breast. There are no suspicious masses, suspicious calcifications, or new areas of architectural distortion. IMPRESSION: THERE IS NO MAMMOGRAPHIC EVIDENCE OF MALIGNANCY. A ROUTINE FOLLOW-UP MAMMOGRAM IN 1 YEAR IS RECOMMENDED. THE RESULTS OF THIS EXAM WERE SENT TO THE PATIENT. ACR BI-RADS Category 2 - Benign finding MAMMOGRAPHY NOTE: 1. A negative mammogram report should not delay a biopsy if a dominant of clinically suspicious mass is present. 2. Approximately 10% to 15% of breast cancers are not detected by mammography. 3. Adenosis and dense breasts may obscure an underlying neoplasm. Reported by: LATOYA BOWMAN MD Electonically Signed: [id number]
== END 2019-03-20 10:18 | disposition home or self-care (01) ==
LOC: BICMAMMO 10:17
PROVIDERS: ATTEND Family Medicine
DX: C50.911 Malignant neoplasm of unspecified site of right female breast (principal)
CPT/HCPCS: 77066; G0279

== ENCOUNTER 2019-04-08 12:44 | Outpatient (CLI) | payer MEDICARE ==
--- NOTE | 2019-04-08 13:36 | RAD ---
FOUR VIEWS LUMBAR SPINE: HISTORY: Right SI joint pain. History of multiple myeloma. FINDINGS: Upright weightbearing views of the lumbar spine are submitted for interpretation. An AP, left oblique , right oblique and lateral views are submitted. There are 5 lumbar type vertebrae. Marked levorotatory scoliosis lumbar spine. 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 Oblique projections limit evaluation for spondylo lysis. No obvious spondylolysis. Lateral projection does suggest retrolisthesis of L2 upon L3 and possibly L3 upon L4. Suboptimal evaluation the L3-L4 and L4-L5 disc space. Additionally, suboptimal e valuation the L3 vertebral body. The possibility of an L3 vertebral body fracture cannot be entirely excluded. Correlation is made with a lumbar spine MRI 12/25/2018. Please refer to that report for further details with regards to the vertebra. IMPRESSION: 1. Extensive degenerative changes and scoliotic changes lumbar spine. Limited evaluation the mid lumb ar spine. Better interrogation with MRI or CT. 2. 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 Transcribed Date/Time: 04/08/2019 1:51 PM
== END 2019-04-08 12:45 | disposition home or self-care (01) ==
LOC: BICRAD 12:44
PROVIDERS: ATTEND Family Medicine
DX: M53.3 Sacrococcygeal disorders, not elsewhere classified (principal); M47.816 Spondylosis without myelopathy or radiculopathy, lumbar region
CPT/HCPCS: 72110

== ENCOUNTER 2020-03-25 08:16 | Outpatient (CLI) | payer MEDICARE ==
--- NOTE | 2020-03-25 08:52 | MMO ---
Bilateral MAMMO Bilat Diag [facility]. CLINICAL HISTORY: Patient is 79 years old and is seen for diagnostic exam. The patient has no family history of breast cancer. 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 The patient has a history of right Lumpectomy in 2017 - malignant and right Ultrasound Guided Core Biopsy - malignant. VIEWS: The views performed were: bilateral craniocaudal with tomosynthesis; bilateral mediolateral oblique with tomosynthesis; and bilateral mediolateral with tomosynthesis. FILMS COMPARED: The present examination has been compared to prior imaging studies performed at [facility] on 01/20/2017, 09/13/2017, 03/14/2018 and 03/20/2019. This study has been interpreted with the assistance of computer-aided detection. MAMMOGRAM FINDINGS: There are scattered fibroglandular densities. There are stable benign appearing calcifications seen in both breasts. There are no suspicious masses, suspicious calcifications, or new areas of architectural distortion. IMPRESSION: THERE IS NO MAMMOGRAPHIC EVIDENCE OF MALIGNANCY. A ROUTINE FOLLOW-UP MAMMOGRAM IN 1 YEAR IS RECOMMENDED. THE RESULTS OF THIS EXAM WERE SENT TO THE PATIENT. ACR BI-RADS Category 2 - Benign finding MAMMOGRAPHY NOTE: 1. A negative mammogram report should not delay a biopsy if a dominant of clinically suspicious mass is present. 2. Approximately 10% to 15% of breast cancers are not detected by mammography. 3. Adenosis and dense breasts may obscure an underlying neoplasm. Reported by: LATOYA BOWMAN MD Electonically Signed: [id number]
== END 2020-03-25 08:17 | disposition home or self-care (01) ==
LOC: BICMAMMO 08:16
PROVIDERS: ATTEND Family Medicine
DX: Z08 Encounter for follow-up examination after completed treatment for malignant neoplasm (principal); Z85.3 Personal history of malignant neoplasm of breast
CPT/HCPCS: 77066; G0279

== ENCOUNTER 2020-05-13 08:55 | Outpatient (CLI) | payer MEDICARE ==
--- NOTE | 2020-05-13 09:18 | RAD ---
RIGHT ANKLE 3 VIEWS: Date: 05/13/2020 HISTORY: Pain. FINDINGS: Soft tissue swelling at the ankle both medially and laterally suggests edema. No fracture. Enthesophy te from the plantar calcaneus. There are mild degenerative changes at the ankle and midfoot. IMPRESSION: No acute osseous abnormality. POS: [facility]
== END 2020-05-13 08:56 | disposition home or self-care (01) ==
LOC: BICRAD 08:55
PROVIDERS: ATTEND Internal Medicine Rheumatology
DX: M25.571 Pain in right ankle and joints of right foot (principal)

== ENCOUNTER 2021-04-14 09:38 | Outpatient (CLI) | payer MEDICARE | END 2021-04-14 09:39 | disposition home or self-care (01) | LOC: BICMAMMO 09:38 | PROVIDERS: ATTEND Family Medicine | DX: Z08 Encounter for follow-up examination after completed treatment for malignant neoplasm (principal); Z13.820 Encounter for screening for osteoporosis; M81.0 Age-related osteoporosis without current pathological fracture; Z85.3 Personal history of malignant neoplasm of breast | CPT/HCPCS: 77066; 77080; G0279 ==

== ENCOUNTER 2021-06-16 14:02 | Outpatient (CLI) | payer MEDICARE | END 2021-06-16 14:03 | disposition home or self-care (01) | LOC: ULT 14:02 | PROVIDERS: ATTEND Internal Medicine Hematology & Oncology | DX: R60.0 Localized edema (principal) | CPT/HCPCS: 83883; 84165; 93970 ==

== ENCOUNTER 2021-09-30 07:50 | Outpatient (CLI) | payer MEDICARE | END 2021-09-30 07:51 | disposition home or self-care (01) | LOC: BICULT 07:50 | PROVIDERS: ATTEND Family Medicine | DX: M79.89 Other specified soft tissue disorders (principal); M79.604 Pain in right leg; M25.871 Other specified joint disorders, right ankle and foot | CPT/HCPCS: 76999 ==

== ENCOUNTER 2023-05-05 10:26 | Outpatient (CLI) | payer MEDICARE | END 2023-05-05 10:27 | disposition home or self-care (01) | LOC: BICMAMMO 10:26 | PROVIDERS: ATTEND Family Medicine | DX: Z12.31 Encounter for screening mammogram for malignant neoplasm of breast (principal); M85.89 Other specified disorders of bone density and structure, multiple sites; M81.0 Age-related osteoporosis without current pathological fracture; Z85.3 Personal history of malignant neoplasm of breast; Z98.890 Other specified postprocedural states | CPT/HCPCS: 77063; 77067; 77080 ==

== ENCOUNTER 2023-06-26 13:06 | Outpatient (CLI) | payer MEDICARE | END 2023-06-26 13:07 | disposition home or self-care (01) | LOC: RAD 13:06 | PROVIDERS: ATTEND Family Medicine | DX: M25.431 Effusion, right wrist (principal); M19.041 Primary osteoarthritis, right hand | CPT/HCPCS: 36415; 84550; 85025; 86038; 86225 ==

== ENCOUNTER 2023-08-01 13:51 | Outpatient (CLI) | payer MEDICARE | END 2023-08-01 13:52 | disposition home or self-care (01) | LOC: BICRAD 13:51 | PROVIDERS: ATTEND Family Medicine | DX: M25.551 Pain in right hip (principal); M41.9 Scoliosis, unspecified; M47.816 Spondylosis without myelopathy or radiculopathy, lumbar region | CPT/HCPCS: 72100; 72170 ==

== ENCOUNTER 2024-02-02 06:40 | Outpatient (CLI) | payer MEDICARE | END 2024-02-02 06:41 | disposition home or self-care (01) | LOC: CT 06:40 | PROVIDERS: ATTEND Family Medicine | DX: K21.9 Gastro-esophageal reflux disease without esophagitis (principal); R13.10 Dysphagia, unspecified; R10.9 Unspecified abdominal pain; K44.9 Diaphragmatic hernia without obstruction or gangrene; K40.20 Bilateral inguinal hernia, without obstruction or gangrene, not specified as recurrent; N28.9 Disorder of kidney and ureter, unspecified; W19.XXXA Unspecified fall, initial encounter | CPT/HCPCS: 70450; 74177 ==

== ENCOUNTER 2024-05-08 08:37 | Outpatient (CLI) | payer MEDICARE | END 2024-05-08 08:38 | disposition home or self-care (01) | LOC: BICMAMMO 08:37 | PROVIDERS: ATTEND Family Medicine | DX: Z12.31 Encounter for screening mammogram for malignant neoplasm of breast (principal); Z85.3 Personal history of malignant neoplasm of breast; Z98.890 Other specified postprocedural states | CPT/HCPCS: 77063; 77067 ==

== ENCOUNTER 2024-08-14 09:32 | Outpatient (CLI) | payer MEDICARE ==
[~2024-08-14 09:32] MED LIST changes: -Gadobenate Dimeglumine 529 MG/1 ML (20ML VIAL) ONE; +Iopamidol 370 76% 100 ML VIAL ONE
== END 2024-08-14 09:33 | disposition home or self-care (01) ==
LOC: BICCT 09:32
PROVIDERS: ATTEND Urology
DX: N28.89 Other specified disorders of kidney and ureter (principal); K44.9 Diaphragmatic hernia without obstruction or gangrene; I51.7 Cardiomegaly; J98.4 Other disorders of lung
CPT/HCPCS: 74170; Q9967

== ENCOUNTER 2025-03-27 09:00 | Day surgery (SDC) | payer MEDICARE ==
[2025-03-27] MEDS ORDERED: Acetaminophen 500 MG TAB ONE (09:43)
[2025-03-27] MEDS ORDERED: diphenhydrAMINE 25 MG CAP ONE (09:43)
[2025-03-27] MEDS: diphenhydrAMINE 25 MG CAP PO SCH (09:44)
[2025-03-27] MEDS: Acetaminophen 500 MG TAB PO SCH (09:44)
[2025-03-27 15:49] VITALS: BP 95/51; TEMP 97.9
== END 2025-03-27 15:50 | disposition home or self-care (01) ==
LOC: ONC/OP 09:00
PROVIDERS: ATTEND Internal Medicine Hematology & Oncology
DX: D64.9 Anemia, unspecified (principal); D69.6 Thrombocytopenia, unspecified
CPT/HCPCS: 36430; 86850; 86900; 86901; 86920; P9016

== ENCOUNTER 2025-04-07 20:45 | Inpatient (IN) | payer MEDICARE ==
[2025-04-07 21:47] LABS: Hematocrit 30.3 % (36.0-47.0); Hemoglobin 9.3 g/dL (12.0-16.0); Mean Corpuscular Hemoglobin 29.9 pg (27.0-31.0); Mean Corpuscular Volume 97.4 fL (78.0-98.0); Platelet Count 199 10x3/uL (130-400); Red Blood Cell (RBC) Count 3.11 mill/uL (4.20-5.40); White Blood Cell (WBC) Count 5.72 10x3/uL (4.8-10.8)
[2025-04-07 22:14] LABS: ALT (SGPT) 9 U/L (Less than 34); AST (SGOT) 20 U/L (11-34); Albumin 2.8 g/dL (3.1-4.5); Alkaline Phosphatase 73 U/L (40-110); Anion Gap 11 mmol/L (10-20); BUN (Urea Nitrogen) 9 mg/dL (9.8-20.1); Bilirubin, Total 0.9 mg/dL (0.3-1.2); Calc. Creatinine Clearance 0 mL/min (70-130); Calcium 8.5 mg/dL (7.8-10.44); Carbon Dioxide 23 mmol/L (23-31); Chloride 103 mmol/L (98-107); Globulin 5.4 g/dL (2.4-3.5); Glucose 115 mg/dL (83-110); Potassium 3.0 mmol/L (3.5-5.1); Sodium 134 mmol/L (136-145)
[2025-04-07 22:26] LABS: Anisocytosis SLIGHT = 6-15 cells HPF (0-5); Macrocytosis SLIGHT = 6-15 cells HPF (0-5); Nucleated RBC (Manual Ct) 1 % (0); Other Cell Types 1.9; Ovalocytes SLIGHT = 2-5 cells HPF (0-1); Plasma Cells 1 % (0-0); Platelet Adequacy Comment Platelets Normal; Polychromasia SLIGHT = 2-3 cells HPF (0-2); Smudge Cells 11.5 %; Stomatocytes SLIGHT = 2-5 cells HPF (0-1)
[2025-04-07] MEDS ORDERED: Azithromycin 250 MG TAB ONE (23:16)
[2025-04-07] MEDS ORDERED: Cefepime 2 GM VIAL ONE (23:17)
[2025-04-07 23:50] LABS: Bacteria/HPF 2+ HPF (None Seen); CAUTI Indications for Culture Alt mental st,lethar; Glucose, Urine (Dipstick) Normal (Negative); Leukocyte 75 Leu/uL (Negative); Protein, Urine (Dipstick) 100 mg/dL (Neg-Trace); Specific Gravity, Urine 1.013 (1.002-1.036); WBC/HPF 21-50 HPF (0-3)
[2025-04-07 23:51] LABS: Urine Culture Reflex Yes Yes
[2025-04-07] MEDS ORDERED: Ondansetron PF 4 MG/2 ML Vial IVP PRN (23:55)
[2025-04-08 03:51] VITALS: BMI 23.1
[2025-04-08] MEDS: Guaifenesin DM 100-10/5 ML UDCUP PO PRN (05:36)
[2025-04-08 05:37] LABS: Anion Gap 10 mmol/L (10-20); BUN (Urea Nitrogen) 9 mg/dL (9.8-20.1); Calc. Creatinine Clearance 69 mL/min (70-130); Calcium 8.6 mg/dL (7.8-10.44); Carbon Dioxide 25 mmol/L (23-31); Chloride 101 mmol/L (98-107); Glucose 110 mg/dL (83-110); Potassium 3.8 mmol/L (3.5-5.1); Sodium 132 mmol/L (136-145)
[2025-04-08 06:03] LABS: Hematocrit 29.8 % (36.0-47.0); Hemoglobin 9.1 g/dL (12.0-16.0); Mean Corpuscular Hemoglobin 30.4 pg (27.0-31.0); Mean Corpuscular Volume 99.7 fL (78.0-98.0); Platelet Count 187 10x3/uL (130-400); Red Blood Cell (RBC) Count 2.99 mill/uL (4.20-5.40); White Blood Cell (WBC) Count 5.49 10x3/uL (4.8-10.8)
[2025-04-08 06:48] LABS: Macrocytosis SLIGHT = 6-15 cells HPF (0-5); Nucleated RBC (Manual Ct) 1 % (0); Plasma Cells 1 % (0-0); Platelet Adequacy Comment Platelets Normal; Polychromasia SLIGHT = 2-3 cells HPF (0-2); Smudge Cells 3.9 %; Stomatocytes SLIGHT = 2-5 cells HPF (0-1)
[2025-04-08] MEDS: Enoxaparin 40 MG (0.4 mL) SYRINGE SC SCH (08:32)
[2025-04-08] MEDS: valACYclovir 500 MG TAB PO SCH (08:33)
[2025-04-08] MEDS ORDERED: Albuterol 200 PUFF INH INH PRN (09:26)
[2025-04-08] MEDS: cefTRIAXone\\ROCEPHIN 1 GM in Sodium Chloride 0.9% 100 ML IVPB SCH (09:40)
[2025-04-08] MEDS: Azithromycin 500 MG in Sodium Chloride 0.9% 250 ML 250 ML IVPB SCH (10:31)
[2025-04-08] MEDS: Acetaminophen 325 MG TAB PO PRN (11:05)
[2025-04-09 05:19] LABS: Hematocrit 28.3 % (36.0-47.0); Hemoglobin 8.8 g/dL (12.0-16.0); Mean Corpuscular Hemoglobin 30.6 pg (27.0-31.0); Mean Corpuscular Volume 98.3 fL (78.0-98.0); Platelet Count 166 10x3/uL (130-400); Red Blood Cell (RBC) Count 2.88 mill/uL (4.20-5.40); White Blood Cell (WBC) Count 3.89 10x3/uL (4.8-10.8)
[2025-04-09 05:42] LABS: Anion Gap 7 mmol/L (10-20); BUN (Urea Nitrogen) 10 mg/dL (9.8-20.1); Calc. Creatinine Clearance 64 mL/min (70-130); Calcium 8.8 mg/dL (7.8-10.44); Carbon Dioxide 27 mmol/L (23-31); Chloride 105 mmol/L (98-107); Glucose 129 mg/dL (83-110); Magnesium 1.7 mg/dL (1.6-2.6); Potassium 3.6 mmol/L (3.5-5.1); Sodium 135 mmol/L (136-145)
[2025-04-09 06:26] LABS: Anisocytosis MODERATE=16-30 cells HPF (0-5); Macrocytosis SLIGHT = 6-15 cells HPF (0-5); Nucleated RBC (Manual Ct) 6 % (0); Platelet Adequacy Comment Platelets Normal; Smudge Cells 32.7 %
[2025-04-09] MEDS: Sulfameth/Trimethoprim DS 800-160mg TAB PO SCH (08:31)
[2025-04-09 17:13] VITALS: BMI 23.1
[2025-04-10 06:28] LABS: Hematocrit 29.3 % (36.0-47.0); Hemoglobin 8.8 g/dL (12.0-16.0); Mean Corpuscular Hemoglobin 29.4 pg (27.0-31.0); Mean Corpuscular Volume 98.0 fL (78.0-98.0); Platelet Count 186 10x3/uL (130-400); Red Blood Cell (RBC) Count 2.99 mill/uL (4.20-5.40); White Blood Cell (WBC) Count 3.41 10x3/uL (4.8-10.8)
[2025-04-10 06:52] LABS: ALT (SGPT) 7 U/L (Less than 34); AST (SGOT) 21 U/L (11-34); Albumin 2.3 g/dL (3.1-4.5); Alkaline Phosphatase 73 U/L (40-110); Anion Gap 9 mmol/L (10-20); BUN (Urea Nitrogen) 9 mg/dL (9.8-20.1); Bilirubin, Total 0.3 mg/dL (0.3-1.2); Calc. Creatinine Clearance 60 mL/min (70-130); Calcium 8.6 mg/dL (7.8-10.44); Carbon Dioxide 27 mmol/L (23-31); Chloride 107 mmol/L (98-107); Globulin 5.2 g/dL (2.4-3.5); Glucose 84 mg/dL (83-110); Potassium 4.0 mmol/L (3.5-5.1); Sodium 139 mmol/L (136-145)
[2025-04-10 07:23] LABS: Anisocytosis SLIGHT = 6-15 cells HPF (0-5); Nucleated RBC (Manual Ct) 2 % (0); Platelet Adequacy Comment Platelets Normal; RBC Morphology Within Normal Limits; Smudge Cells 7.8 %
[2025-04-10 08:31] VITALS: BP 114/64; TEMP 98.2
[2025-04-10] MEDS ORDERED: Albuterol 200 PUFF INH INH SCH (18:30)
[2025-04-10] MEDS ORDERED: Aspirin 81 mg Enteric Coated Tablet PO SCH (21:00)
[2025-04-10] MEDS ORDERED: DULoxetine 20 MG CAP PO SCH (21:00)
[2025-04-11] MEDS ORDERED: Ferrous Sulfate 325 MG TAB PO SCH (08:00)
[2025-04-11] MEDS ORDERED: Pantoprazole 40 MG DR.TAB PO SCH (09:00)
[2025-04-11] MEDS ORDERED: Non-Formulary Item 1 EACH (Ferrous Sulfate [Iron] 142 MG Tablet.Er) PO SCH (09:00)
== END 2025-04-10 15:27 | DRG 178 ==
LOC: ERS 20:45 → T4-A 23:55
PROVIDERS: ADMIT Internal Medicine; ATTEND Internal Medicine
DX: U07.1 COVID-19 (principal); C90.00 Multiple myeloma not having achieved remission; N39.0 Urinary tract infection, site not specified; G47.33 Obstructive sleep apnea (adult) (pediatric); E03.9 Hypothyroidism, unspecified; K21.9 Gastro-esophageal reflux disease without esophagitis; E87.6 Hypokalemia; Z90.49 Acquired absence of other specified parts of digestive tract; Z98.890 Other specified postprocedural states; Z96.651 Presence of right artificial knee joint; Z87.891 Personal history of nicotine dependence; Z85.3 Personal history of malignant neoplasm of breast; Z79.82 Long term (current) use of aspirin; Z79.899 Other long term (current) drug therapy
CPT/HCPCS: 36415; 71045; 80048; 80053; 81001; 83735; 84145; 84443; 84484; 85025; 87040; 87077; 87086; 87186; 87428; 93005; 94640; 96365; J0456; J0692; J0696; J1650; J2185; J2543; J7050

== ENCOUNTER 2025-04-29 07:47 | Day surgery (SDC) | payer MEDICARE ==
[2025-04-29] MEDS ORDERED: Acetaminophen 500 MG TAB ONE (08:10)
[2025-04-29] MEDS ORDERED: diphenhydrAMINE 25 MG CAP ONE (08:10)
[2025-04-29] MEDS: diphenhydrAMINE 25 MG CAP PO SCH (08:11)
[2025-04-29] MEDS: Acetaminophen 500 MG TAB PO SCH (08:11)
[2025-04-29 14:39] VITALS: BP 137/64; TEMP 98.3
== END 2025-04-29 14:41 | disposition home or self-care (01) ==
LOC: ONC/OP 07:47
PROVIDERS: ATTEND Internal Medicine Hematology & Oncology
DX: D64.9 Anemia, unspecified (principal); D69.6 Thrombocytopenia, unspecified
CPT/HCPCS: 36430; 86850; 86900; 86901; 86920; P9016

== ENCOUNTER 2025-05-05 13:53 | Day surgery (SDC) | payer MEDICARE ==
[2025-05-05] MEDS: SODIUM CHLORIDE 0.9% IVPB SCH (14:52)
[2025-05-05] MEDS: GENTAMICIN SULFATE IVPB SCH (14:52)
[2025-05-05 15:12] VITALS: BP 130/68; TEMP 98
== END 2025-05-05 16:22 | disposition home or self-care (01) ==
LOC: ONC/OP 13:53
PROVIDERS: ATTEND Family Medicine
DX: N39.0 Urinary tract infection, site not specified (principal)
CPT/HCPCS: 96365; J1580

== ENCOUNTER 2025-06-03 17:52 | Inpatient (IN) | payer MEDICARE ==
[2025-06-03] MEDS: Dexamethasone 10 MG/ML VIAL SLOW IVP SCH (21:20)
[2025-06-03 23:01] VITALS: BMI 21.5
[2025-06-04] MEDS: QUEtiapine 25 MG TAB PO SCH ×2 (03:47→20:12)
[2025-06-04 11:56] VITALS: BMI 21.5
[2025-06-04] MEDS ORDERED: Pantoprazole 40 MG DR.TAB PO SCH (14:07)
[2025-06-04] MEDS ORDERED: valACYclovir 500 MG TAB PO SCH (14:08)
[2025-06-04] MEDS: Acetaminophen 500 MG TAB PO PRN (14:41)
[2025-06-04] MEDS: valACYclovir 500 MG TAB PO SCH (14:42)
[2025-06-04] MEDS: Pantoprazole 40 MG DR.TAB PO SCH (14:42)
[2025-06-04 15:54] LABS: Anion Gap 10 mmol/L (10-20); BUN (Urea Nitrogen) 24 mg/dL (9.8-20.1); Calc. Creatinine Clearance 39 mL/min (70-130); Calcium 9.2 mg/dL (7.8-10.44); Carbon Dioxide 24 mmol/L (23-31); Chloride 107 mmol/L (98-107); Glucose 124 mg/dL (83-110); Magnesium 1.8 mg/dL (1.6-2.6); Potassium 3.9 mmol/L (3.5-5.1); Sodium 137 mmol/L (136-145)
[2025-06-04] MEDS: DULoxetine 20 MG CAP PO SCH (20:12)
[2025-06-05 05:11] LABS: Hematocrit 20.7 % (36.0-47.0); Hemoglobin 6.3 g/dL (12.0-16.0); Mean Corpuscular Hemoglobin 31.5 pg (27.0-31.0); Mean Corpuscular Volume 103.5 fL (78.0-98.0); Platelet Count 144 10x3/uL (130-400); Red Blood Cell (RBC) Count 2.00 mill/uL (4.20-5.40); White Blood Cell (WBC) Count 5.77 10x3/uL (4.8-10.8)
[2025-06-05 05:25] LABS: Anion Gap 8 mmol/L (10-20); BUN (Urea Nitrogen) 27 mg/dL (9.8-20.1); Calc. Creatinine Clearance 53 mL/min (70-130); Calcium 9.1 mg/dL (7.8-10.44); Carbon Dioxide 27 mmol/L (23-31); Chloride 110 mmol/L (98-107); Glucose 122 mg/dL (83-110); Magnesium 2.1 mg/dL (1.6-2.6); Potassium 4.0 mmol/L (3.5-5.1); Sodium 141 mmol/L (136-145)
[2025-06-05 05:40] LABS: Anisocytosis SLIGHT = 6-15 cells HPF (0-5); Macrocytosis SLIGHT = 6-15 cells HPF (0-5); Nucleated RBC (Manual Ct) 2 % (0); Platelet Adequacy Comment Platelets Normal; Smudge Cells 7.6 %
[2025-06-05] MEDS: Pantoprazole 40 MG DR.TAB PO SCH (08:40)
[2025-06-05] MEDS: valACYclovir 500 MG TAB PO SCH (08:40)
[2025-06-05 14:50] VITALS: BP 132/71; TEMP 98
== END 2025-06-05 15:02 | disposition home or self-care (01) | DRG 847 ==
LOC: MSONC 18:11 → OBSVTOIN 06-04 13:22
PROVIDERS: ADMIT Family Medicine; ATTEND Hospitalist
PROC: XW0 New Technology, Anatomical Regions, Introduction (ICD-10-PCS; principal; 2025-06-04)
PROC: 30233N1 Transfusion of Nonautologous Red Blood Cells into Peripheral Vein, Percutaneous Approach (ICD-10-PCS; 2025-06-04)
DX: Z51.11 Encounter for antineoplastic chemotherapy (principal); C90.00 Multiple myeloma not having achieved remission; G47.33 Obstructive sleep apnea (adult) (pediatric); E03.9 Hypothyroidism, unspecified; K21.9 Gastro-esophageal reflux disease without esophagitis; Z48.816 Encounter for surgical aftercare following surgery on the genitourinary system; Z96.651 Presence of right artificial knee joint; Z98.890 Other specified postprocedural states; Z90.49 Acquired absence of other specified parts of digestive tract; Z90.710 Acquired absence of both cervix and uterus; Z87.891 Personal history of nicotine dependence; Z79.82 Long term (current) use of aspirin; Z79.899 Other long term (current) drug therapy; Z79.890 Hormone replacement therapy
CPT/HCPCS: 36415; 36430; 80048; 83735; 85025; 86850; 86900; 86901; 97139; J1100; P9016

== ENCOUNTER 2025-06-09 12:18 | Inpatient (IN) | payer MEDICARE ==
[2025-06-09 14:19] VITALS: BMI 22.3
[2025-06-09] MEDS: PNEUMOC 20-VAL CONJ-DIP CRM/PF 0.5 ML SYRINGE IM ONE (14:29)
[2025-06-09] MEDS: FLU (Fluad Triv) 25-26 (65UP)PF 45 MCG/0.5 ML Syringe IM ONE (14:29)
[2025-06-09] MEDS ORDERED: Acetaminophen 500 MG TAB PO PRN (14:42)
[2025-06-09] MEDS ORDERED: Ondansetron PF 4 MG/2 ML Vial IVP PRN (14:57)
[2025-06-09] MEDS ORDERED: Senokot S 8.6-50 MG TAB PO PRN (14:57)
[2025-06-09] MEDS ORDERED: Melatonin 3 MG TAB PO PRN (14:57)
[2025-06-09] MEDS: Aspirin 81 mg Enteric Coated Tablet PO SCH (20:01)
[2025-06-09] MEDS: DULoxetine 20 MG CAP PO SCH (20:02)
[2025-06-09] MEDS: Dexamethasone 10 MG/ML VIAL SLOW IVP SCH (20:02)
[2025-06-09] MEDS: QUEtiapine 25 MG TAB PO SCH (20:40)
[2025-06-10] MEDS: Pantoprazole 40 MG DR.TAB PO SCH (06:01)
[2025-06-10] MEDS: Ferrous Sulfate 325 MG TAB PO SCH (08:29)
[2025-06-10] MEDS ORDERED: Pantoprazole 40 MG DR.TAB PO SCH (09:00)
[2025-06-10 10:34] LABS: Hematocrit 29.1 % (36.0-47.0); Hemoglobin 9.1 g/dL (12.0-16.0); Mean Corpuscular Hemoglobin 31.7 pg (27.0-31.0); Mean Corpuscular Volume 101.4 fL (78.0-98.0); Platelet Count 142 10x3/uL (130-400); Red Blood Cell (RBC) Count 2.87 mill/uL (4.20-5.40); White Blood Cell (WBC) Count 6.29 10x3/uL (4.8-10.8)
[2025-06-10 10:53] LABS: ALT (SGPT) 39 U/L (Less than 34); AST (SGOT) 34 U/L (11-34); Albumin 3.0 g/dL (3.1-4.5); Alkaline Phosphatase 41 U/L (40-110); Anion Gap 10 mmol/L (10-20); BUN (Urea Nitrogen) 31 mg/dL (9.8-20.1); Bilirubin, Total 0.5 mg/dL (0.3-1.2); Calc. Creatinine Clearance 63 mL/min (70-130); Calcium 8.5 mg/dL (7.8-10.44); Carbon Dioxide 24 mmol/L (23-31); Chloride 106 mmol/L (98-107); Globulin 5.8 g/dL (2.4-3.5); Glucose 116 mg/dL (83-110); Potassium 3.8 mmol/L (3.5-5.1); Sodium 136 mmol/L (136-145)
[2025-06-10 10:56] LABS: Anisocytosis MODERATE=16-30 cells HPF (0-5); Macrocytosis SLIGHT = 6-15 cells HPF (0-5); Nucleated RBC (Manual Ct) 3 % (0); Ovalocytes SLIGHT = 2-5 cells HPF (0-1); Platelet Adequacy Comment Platelets Normal; Polychromasia SLIGHT = 2-3 cells HPF (0-2); Smudge Cells 14.4 %
[2025-06-10] MEDS: QUEtiapine 25 MG TAB PO SCH (21:16)
[2025-06-11 11:38] VITALS: BP 146/75; TEMP 97.5
== END 2025-06-11 12:53 | disposition home or self-care (01) | DRG 841 ==
LOC: MSONC 13:08 → OBSVTOIN 06-10 15:07
PROVIDERS: ADMIT Internal Medicine; ATTEND Internal Medicine
DX: C90.00 Multiple myeloma not having achieved remission (principal); I42.9 Cardiomyopathy, unspecified; G47.33 Obstructive sleep apnea (adult) (pediatric); Z66 Do not resuscitate; K21.9 Gastro-esophageal reflux disease without esophagitis; E03.9 Hypothyroidism, unspecified; I10 Essential (primary) hypertension; G47.00 Insomnia, unspecified; Z98.890 Other specified postprocedural states; Z87.891 Personal history of nicotine dependence; Z79.899 Other long term (current) drug therapy; Z79.82 Long term (current) use of aspirin; Z79.890 Hormone replacement therapy
CPT/HCPCS: 36415; 80053; 85025; 96374; 96376; G0378; J1100

== ENCOUNTER 2025-07-26 10:28 | Outpatient (CLI) | payer MEDICARE | END 2025-07-26 10:29 | disposition home or self-care (01) | LOC: RAD 10:28 | PROVIDERS: ATTEND Family Medicine | DX: M54.50 Low back pain, unspecified (principal) | CPT/HCPCS: 72100 ==